=== PATIENT | male | born 1960 | race Caucasian/White ===

== ENCOUNTER → 2023-12-03 15:50 | Outpatient (REF) | payer OTHER, SELFPAY | LOC: RCS 15:50 | PROVIDERS: ATTENDING PHYSICIAN Physician Assistant Medical | DX: I35.0 Nonrheumatic aortic (valve) stenosis (principal) | CPT/HCPCS: 93306 ==

== ENCOUNTER 2024-02-18 06:45 | Day surgery (SDC) | payer OTHER, SELFPAY ==
[2024-02-18] VITALS (19 sets, daily range): BP systolic 105–180; BP diastolic 66–89; BMI 25.4
[2024-02-18 07:08] LABS: Hematocrit 44.7 % (39.0-52.0); Hemoglobin 15.9 g/dL (13.0-18.0); Mean Corp Hgb Conc. 35.6 g/dL (33.0-37.0); Mean Corpuscular Hgb 31.2 pg (27.0-31.0); Mean Corpuscular Volume 87.6 fL (80.0-94.0); Mean Platelet Volume 10.6 fL (7.4-10.4); Platelet Count 235 10^3/uL (130-400); Red Cell Dist. Width 12.8 % (11.5-14.5); White Blood Cell Count 7.3 10^3/uL (4.8-10.8)
[2024-02-18] MEDS: LOW STRENGTH ASPIRIN 81 MG PO (07:27)
[2024-02-18 08:04] LABS: ALT (SGPT) 24 U/L (0-50); AST (SGOT) 25 U/L (17-59); Albumin 4.8 g/dl (3.5-5.0); Alkaline Phosphatase 75 U/L (38-126); Blood Urea Nitrogen 19 mg/dl (9-20); Calcium 9.6 mg/dl (8.4-10.2); Carbon Dioxide 24 mmol/L (22-30); Chloride 104 mmol/L (98-107); Estimated Creatinine Clearance 96 ml/min; Glucose 123 mg/dl (70-99); Potassium 4.2 mmol/L (3.5-5.1); Sodium 142 mmol/L (135-145); Total Bilirubin 1.4 mg/dl (0.2-1.3); Total Protein 7.2 g/dl (6.3-8.2); eGFR > 60.00
--- NOTE | 2024-02-18 08:17 | ITS.CL.CATH ---
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
Cardiac Catheterization
Procedure Report:
LEFT AND RIGHT HEART CATHETERIZATION
Date of Procedure: February 18, 2024
Referring: Vashti Wilson MD, [facility], [facility]
PROCEDURES:
1. Left heart catheterization, coronary angiogram.
2. Right heart catheterization.
3. Ultrasound-guided access
INDICATION: Pre-consideration for AVR and MVR for severe bicuspid aortic stenosis and moderate to severe mitral stenosis
ACCESS:
1. Right radial artery, 6 Panamanian sheath, under ultrasound guidance
2. Right brachial vein, 6 Panamanian
HEMODYNAMICS : (mmHg)
RA (m) : 6
RV (s/d,m) : 32/5, 10
PA (s/d, m) : 32/15, 22
PCWP (m) : 16
PA saturation: 73.4% on room air
AO saturation: 94.6% on room air
RA saturation: 75% on room air
Cardiac Output : 5.38 L/min
Cardiac Index : 2.51 L/min/m-2
Systemic vascular resistance: 1205 dsc^(-5)
Pulmonary vascular resistance: 1.12 rico unit
AO (s/d) : 144/68
CORONARY FINDINGS
DOMINANCE: Right
LEFT MAIN: The left main artery is a large-caliber vessel which gives rise to the left circumflex artery and the left anterior descending artery. There is mild diffuse atherosclerotic plaque.
LEFT ANTERIOR DESCENDING: The left anterior descending artery is a large-caliber vessel which gives rise to 2 major diagonal branches as it courses through the anterior interventricular groove and wraps around the apex. There is mild diffuse
atherosclerotic plaque.
CIRCUMFLEX: The left circumflex artery is a medium caliber vessel which gives rise to 1 major branching obtuse marginal branch. There is mild diffuse atherosclerotic plaque.
RIGHT CORONARY ARTERY: The RCA is heavily calcified at the ostium with significant difficulty with selective engagement despite using multiple diagnostic catheters (5 Panamanian JR4 and 3 DRC). There is an eccentric calcified 70% ostial RCA stenosis
and a vessel that is otherwise severely tortuous in the proximal to midportion. Distal RCA has 2 serial 40% stenoses. RPDA appears to be a good bypass target.
SEDATION: 42 minutes of procedural sedation was utilized. An independent rn medical surgical was present to assist with and help manage the patient's level of consciousness and physiologic status.
RADIATION SUMMARY: Fluoro Time (min): 11.4, Dose (mGy): 449.28, DAP (Gy.cm2) : 36.07
Closure Device:
1. Vascular band over right radial artery, 10 cc of air.
2. Manual pressure was held over the right brachial venous access site with successful hemostasis.
CONCLUSIONS
1. Significant one-vessel coronary artery disease in the ostial RCA.
2. Otherwise no obstructive coronary artery disease.
3. Mildly elevated right and left-sided filling pressures with normal cardiac output and normal systemic vascular resistance.
RECOMMENDATIONS
1. CT surgery consult as an outpatient to discuss possible AVR/MVR and one-vessel coronary artery bypass grafting to RCA. There is an eccentric calcified 70% ostial RCA stenosis and a vessel that is otherwise severely tortuous in the proximal to
midportion. Distal RCA has 2 serial 40% stenoses. RPDA appears to be a good bypass target.
2. We will obtain a CT angio of the chest per TAVR protocol in the setting of known bicuspid aortic stenosis to assess aortopathy and need for aortic intervention.
3. Continued aggressive management of cardiovascular risk factors.
4. Wean radial band per protocol.
5. Eventual referral for outpatient cardiac rehab.
Vashti Wilson MD, FAC, [facility]
== END 2024-02-18 16:40 | disposition home or self-care (01) ==
LOC: CATH 06:45
PROVIDERS: ATTENDING PHYSICIAN Internal Medicine Cardiovascular Disease; FAMILY PHYSICIAN Physician Assistant Medical; OTHER PHYSICIAN Internal Medicine Interventional Cardiology
DX: I08.0 Rheumatic disorders of both mitral and aortic valves (principal); I25.10 Atherosclerotic heart disease of native coronary artery without angina pectoris; I10 Essential (primary) hypertension; E78.00 Pure hypercholesterolemia, unspecified; Z87.891 Personal history of nicotine dependence; Z79.82 Long term (current) use of aspirin
CPT/HCPCS: 93312; 93320; 93325; 99152; 99153; 80053; 85027; 93456; C1894; Q9967

== ENCOUNTER → 2024-02-26 12:31 | Outpatient (REF) | payer OTHER, SELFPAY | LOC: RAD 12:31 | PROVIDERS: ATTENDING PHYSICIAN Internal Medicine Interventional Cardiology; FAMILY PHYSICIAN Physician Assistant Medical | DX: I35.0 Nonrheumatic aortic (valve) stenosis (principal) | CPT/HCPCS: 75572; Q9967 ==

== ENCOUNTER 2024-03-12 05:08 | Inpatient (IN) | payer OTHER, SELFPAY ==
[2024-03-10 08:52] VITALS: BMI 24.5
[2024-03-10 09:21] LABS: % Basophils 0.5 % (0-2); % Eosinophils 1.7 % (0-6); % Immature Granulocytes 0.4 % (0-0.5); % Lymphocytes 25.7 % (20.5-51.1); % Monocytes 8.1 % (1.7-9.3); % Neutrophils 63.6 % (42.2-75.2); Absolute Eosinophils 0.1 10^3/uL (0-0.7); Absolute Lymphocytes 2.2 10^3/uL (1.2-3.4); Absolute Monocytes 0.7 10^3/uL (0.1-0.6); Absolute Neutrophils 5.3 10^3/uL (1.4-6.5); Hemoglobin 14.9 g/dL (13.0-18.0); Mean Corp Hgb Conc. 35.5 g/dL (33.0-37.0); Mean Corpuscular Volume 90.1 fL (80.0-94.0); Mean Platelet Volume 10.3 fL (7.4-10.4); Nucleated Red Blood Cells % 0 % (-); Platelet Count 263 10^3/uL (130-400); Red Blood Cell Count 4.66 10^6/uL (4.70-6.10); Red Cell Dist. Width 12.6 % (11.5-14.5); White Blood Cell Count 8.4 10^3/uL (4.8-10.8)
[2024-03-10 09:25] LABS: APTT 32.4 Sec (23.4-35.0); INR 1.05; PT 13.8 Sec (11.4-14.6)
[2024-03-10 09:53] LABS: ALT (SGPT) 27 U/L (0-50); AST (SGOT) 24 U/L (17-59); Albumin 4.6 g/dl (3.5-5.0); Alkaline Phosphatase 66 U/L (38-126); Blood Urea Nitrogen 15 mg/dl (9-20); Calcium 9.3 mg/dl (8.4-10.2); Carbon Dioxide 27 mmol/L (22-30); Chloride 101 mmol/L (98-107); Estimated Creatinine Clearance 96 ml/min; Glucose 109 mg/dl (70-99); Potassium 4.2 mmol/L (3.5-5.1); Sodium 142 mmol/L (135-145); Total Bilirubin 0.9 mg/dl (0.2-1.3); Total Protein 6.9 g/dl (6.3-8.2); eGFR > 60.00
--- NOTE | 2024-03-10 09:58 | CM ---
Met with Mr. Olvera and his sister in [facility]. He states prior to admission he resides with his spouse in a one story home with three steps to enter. He states prior to admission he was independent with ambulation and adls. He states he does not
have any DME in the home. He states he has a prescription plan. His spouse works outside the home. He states his spouse and other family member will be around to assist in his care if needed when he goes home. The discharge plan is to return home
with his spouse and a home visit by the Transitional Care Nurse when medically stable.
We reviewed pre-op and post-op routines. We reviewed the shower instructions. He has the soap, written instructions and the Cardiothoracic Surgery Educational Booklet. We also reviewed restrictions including sternal precautions and driving
restrictions. We also discussed a home visit by the Transitional Care Nurse. He is agreeable to a home visit. If he needs VNA post TCRN he has selected [facility]. The plan is for AVR/MVR and CABG on Friday03/12/24.
[2024-03-10 10:21] LABS: Direct Bilirubin 0.2 mg/dl (0.0-0.4); Glycohemoglobin (HgbA1c) 5.3 % (4.0-5.6)
[2024-03-10 11:18] LABS: Urine Albumin Negative (Neg - Trace); Urine Bilirubin Negative (Negative); Urine Character Clear (Clear); Urine Color Yellow; Urine Glucose Negative (Negative); Urine Ketone Negative (Negative); Urine Leukocyte Negative (Negative); Urine Nitrite Negative (Negative); Urine Occult Blood Negative (Negative); Urine Urobilinogen Negative (Neg - 1+)
[2024-03-12] VITALS (13 sets, daily range): BP systolic 97–155; BP diastolic 49–76; BMI 23.5
[2024-03-12] MEDS: MAGNESIUM OXIDE 500 MG PO (05:34)
[2024-03-12] MEDS: PROTONIX 40 MG PO (05:34)
[2024-03-12] MEDS: LOPRESSOR 25 MG PO (05:35)
[2024-03-12] MEDS: BACTROBAN 2% OINTMENT 1 APPLIC NASAL ×2 (05:35→20:03)
--- NOTE | 2024-03-12 05:54 | PTCARENOTE ---
pt admitted into 2266. pt admits to NPO PMN and 2 showers at home. labs sent, pt clipped, washed with CHG, full admission completed. awaiting CVOR
--- NOTE | 2024-03-12 05:55 | W.CVOR.SURPR ---
CVOR Surgeon Immed Pre Op
-
I have examined this patient prior to performance of the scheduled procedure.
The patient's condition is unchanged from the time of the dictated/written History and
Physical and the patient is able to undergo the scheduled procedure.
Sternotomy AVR + MVR + CABG x 1 + MAYCOL Clip
[2024-03-12 07:03] LABS: ACT+ - POC 96 Seconds (82-134)
[2024-03-12 07:33] LABS: Urine Albumin Trace (Neg - Trace); Urine Bilirubin 1+ (Negative); Urine Character Clear (Clear); Urine Color Yellow; Urine Glucose Negative (Negative); Urine Ketone 3+ (Negative); Urine Leukocyte Trace (Negative); Urine Nitrite Negative (Negative); Urine Occult Blood 2+ (Negative); Urine Specific Gravity 1.025 (<1.030); Urine Urobilinogen Negative (Neg - 1+)
[2024-03-12 08:24] LABS: ACT+ - POC 572 Seconds (82-134)
--- NOTE | 2024-03-12 08:29 | CM ---
Reviewed chart. Mr.. Olvera is in the operating room today. Prior to admission he resides with his spouse in a one story home with three steps to enter. Prior to admission he was independent with ambulation and adls. He does not have any DME in
the home. He has a prescription plan and and uses [facility]. His spouse works outside the home. His spouse and other family members will be around to assist in his care when he goes home if needed. Medical work-up in progress. The discharge
plan is to return home with his spouse and a home visit by the Transitional Care Nurse when medically stable.
[2024-03-12 08:47] LABS: B.E. - POC -1.2 mmol/L; Glucose - POC 112 mg/dl (70-99); HCO3 - POC 24 mmol/L (21-29); Hematocrit - POC 41 % PCV (42-52); Hemodilution- POC Yes; Hemoglobin Calculated - POC 13.8; Ionized Calcium - POC 1.17 mmol/L (1.12-1.27); PCO2 - POC 40 mmHg (35-45); PO2 - POC 409 mmHg (80-100); POC Comment PRE; Potassium - POC 3.7 mmol/L (3.6-5.0); Sodium - POC 141 mmol/L (135-145); pH - POC 7.39 (7.35-7.45)
[2024-03-12 09:00] LABS: ACT+ - POC 466 Seconds (82-134)
[2024-03-12 09:08] LABS: ACT+ - POC 472 Seconds (82-134)
[2024-03-12 09:15] LABS: B.E. - POC 1.7 mmol/L; Glucose - POC 102 mg/dl (70-99); HCO3 - POC 26 mmol/L (21-29); Hematocrit - POC 31 % PCV (42-52); Hemodilution- POC Yes; Hemoglobin Calculated - POC 10.5; Ionized Calcium - POC 1.01 mmol/L (1.12-1.27); O2 Saturation %Calculated-POC 99.9 % (92-96); PCO2 - POC 37 mmHg (35-45); PO2 - POC 326 mmHg (80-100); POC Comment CPB; Sodium - POC 138 mmol/L (135-145); pH - POC 7.45 (7.35-7.45)
[2024-03-12 09:18] LABS: Urine Amorphous Seen; Urine Squamous Cell 0-2 /LPF (Few)
[2024-03-12 09:19] LABS: Urine White Cell 0-2 /HPF (0-5)
[2024-03-12 09:26] LABS: ACT+ - POC 584 Seconds (82-134)
[2024-03-12 09:43] LABS: B.E. - POC 0.8 mmol/L; Glucose - POC 129 mg/dl (70-99); HCO3 - POC 25 mmol/L (21-29); Hematocrit - POC 34 % PCV (42-52); Hemodilution- POC Yes; Hemoglobin Calculated - POC 11.5; Ionized Calcium - POC 1.03 mmol/L (1.12-1.27); O2 Saturation %Calculated-POC 99.6 % (92-96); PCO2 - POC 37 mmHg (35-45); PO2 - POC 175 mmHg (80-100); POC Comment CPB; Potassium - POC 4.9 mmol/L (3.6-5.0); Sodium - POC 139 mmol/L (135-145); pH - POC 7.44 (7.35-7.45)
[2024-03-12 09:53] LABS: ACT+ - POC 557 Seconds (82-134)
[2024-03-12 10:20] LABS: B.E. - POC -0.4 mmol/L; Glucose - POC 142 mg/dl (70-99); HCO3 - POC 23 mmol/L (21-29); Hematocrit - POC 36 % PCV (42-52); Hemodilution- POC Yes; Hemoglobin Calculated - POC 12.4; Ionized Calcium - POC 1.04 mmol/L (1.12-1.27); O2 Saturation %Calculated-POC 99.8 % (92-96); PCO2 - POC 34 mmHg (35-45); PO2 - POC 217 mmHg (80-100); POC Comment CPB; Potassium - POC 4.9 mmol/L (3.6-5.0); Sodium - POC 139 mmol/L (135-145); pH - POC 7.45 (7.35-7.45)
[2024-03-12 10:30] LABS: ACT+ - POC 466 Seconds (82-134)
[2024-03-12 10:45] LABS: B.E. - POC -1.9 mmol/L; Glucose - POC 146 mg/dl (70-99); HCO3 - POC 24 mmol/L (21-29); Hematocrit - POC 37 % PCV (42-52); Hemodilution- POC Yes; Hemoglobin Calculated - POC 12.5; Ionized Calcium - POC 1.08 mmol/L (1.12-1.27); O2 Saturation %Calculated-POC 99.7 % (92-96); PCO2 - POC 44 mmHg (35-45); PO2 - POC 220 mmHg (80-100); POC Comment CPB; Potassium - POC 4.7 mmol/L (3.6-5.0); Sodium - POC 139 mmol/L (135-145); pH - POC 7.34 (7.35-7.45)
[2024-03-12 10:57] LABS: ACT+ - POC 654 Seconds (82-134)
[2024-03-12 11:32] LABS: Glucose - POC 147 mg/dl (70-99); HCO3 - POC 26 mmol/L (21-29); Hematocrit - POC 36 % PCV (42-52); Hemodilution- POC Yes; Hemoglobin Calculated - POC 12.2; Ionized Calcium - POC 1.04 mmol/L (1.12-1.27); PCO2 - POC 48 mmHg (35-45); PO2 - POC 405 mmHg (80-100); POC Comment WARM; Potassium - POC 4.7 mmol/L (3.6-5.0); Sodium - POC 141 mmol/L (135-145); pH - POC 7.35 (7.35-7.45)
[2024-03-12 11:37] LABS: ACT+ - POC 120 Seconds (82-134)
[2024-03-12] MEDS: NEURONTIN PO ×2 (12:36→16:04)
[2024-03-12] MEDS: NOVOLOG FLEXPEN SC ×2 (12:36→16:04)
[2024-03-12] MEDS: TYLENOL PO ×2 (12:37→19:59)
--- NOTE | 2024-03-12 12:40 | CON.INTV ---
Consultation
Consultation Request
Date/Time Consultation Requested: 03/12/2024-1:30 PM
Date/Time Consultation Performed: 03/12/2024-1:30 PM
Requesting Provider: Dr. Olivares
Performing Provider: Dr. Rod
Reason for Consultation: Postoperative ventilator/critical care management
Medical History
-
Chief Complaint: CAD/aortic stenosis
History of Present Illness:
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
ventilator/critical care management 02/11/2024. Patient is sedated on a ventilator and review of systems was unobtainable. Operative records were reviewed. Postoperative vital signs, pressors and inotropes were reviewed.
Past Medical History
Past Medical History: None (Hypertension. Hyperlipidemia. CAD. Aortic stenosis. Mitral stenosis. Former drinker-quit 2006. Former [id number]-year, quit 2000. Hernia repair.)
Social History
Tobacco: Former Smoker ([id number] quit 2000)
Alcohol: Former (Quit 2007)
Drug: None
Personal:
Living: With Family
Occupational Exposures: No known asbestos exposure
Environmental Exposures: No known tuberculosis exposure
Family History
Family History: Other (Father-multiple sclerosis. Mother-glaucoma and hypertension. Brother-hypertension and CVA. Brother-throat cancer. Daughter-triple X syndrome.)
Allergies / Home Medications
Allergies
Allergy/AdvReac Type Severity Reaction Status Date / Time
Wyaoikp-[id number]-NyP Reductase Allergy Severe myalgias Verified 03/09/24 14:47
Inhibitor
Home Medications
�Medication �Instructions �Recorded �Confirmed �Last Taken �Type
aspirin 81 mg chewable tablet 81 mg DAILY Blood Clot 02/18/24 03/12/24 03/11/24 19:00 History
Prevention/Tx
evolocumab 140 mg/mL subcutaneous 140 mg SC Q14D High Cholesterol 02/18/24 03/12/24 03/04/24 19:00 History
pen injector (Jeffry Doyle)
ezetimibe 10 mg tablet 10 mg PO QPM High Cholesterol 02/18/24 03/12/24 03/11/24 19:00 History
magnesium 250 mg tablet 250 mg PO DAILY Electrolyte 02/18/24 03/12/24 03/09/24 09:00 History
Repletion
metoprolol succinate 25 mg 25 mg PO QPM Heart 02/18/24 03/12/24 03/11/24 19:00 History
tablet,extended release 24 hr Disease/Condition
multivitamin 1 tab PO DAILY Supplement 02/18/24 03/12/24 03/09/24 19:00 History
amlodipine 10 mg tablet 10 mg PO QPM Blood Pressure 03/09/24 03/12/24 03/09/24 09:00 History
fluticasone propionate 50 1 spray intranasal BID PRN 03/09/24 03/09/24 Unknown History
mcg/actuation nasal CONGESTION
spray,suspension
potassium gluconate 595 mg (99 mg) 595 mg PO DAILY Electrolyte 03/09/24 03/12/24 03/09/24 19:00 History
tablet Repletion
Review of Systems
-
Unable to Obtain full review of systems at this time due to: Other (Per HPI)
Vitals / Labs / Diagnostic Testing
Vital Signs
Temp Pulse Resp Pulse Ox
98.3 F 95 20 96
03/12/24 06:23 03/12/24 06:23 03/12/24 06:23 03/12/24 06:23
Microbiology
03/10/24 08:49 Nose MRSA Screen - Final
No Methicillin Resistant Staphylococcus aureus isolated.
Diagnostic Testing:
Physical Exam
-
Exam:
Well-nourished and well-developed in no apparent distress
HEENT-atraumatic, normocephalic, oral tracheal intubation
Heart-regular rate and rhythm-no murmurs, rubs or gallops
Chest-clear to auscultation, no wheezes, crackles, median sternotomy bandage is not removed
Abdomen soft nondistended
Extremities-no cyanosis, clubbing, edema and good peripheral pulses
Integument-intact, no rashes, lesions or ecchymosis
Neurologically not alert, not oriented, not moving any of his extremities sedated on a ventilator
Assessment
-
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
ventilator/critical care management 02/11/2024.
CAD/aortic stenosis/mitral stenosis
Status post CABG x 1-SVG to RPDA/29 mm bioprosthetic AVR/31 mm bioprosthetic MVR-Dr. Olivares-03/12/2024
Conditions present prior to admission:
Hypertension.
Hyperlipidemia.
CAD.
Aortic stenosis.
Mitral stenosis.
Former drinker-quit 2006.
Former [id number]-year, quit 2000.
Hernia repair.
Plan
Ventilator settings reviewed
FiO2 will be weaned
Minute ventilation will be adjusted
Arterial blood gases will be monitored
Spontaneous breathing trial will be attempted with hopeful extubation after anesthesia/sedation wear off
Pulmonary artery catheter parameters will be followed
Pressors/antihypertensive/inotropes/diuretics will be provided as needed
Monitor chest tube output
Monitor hemoglobin
Monitor platelet count and coags
Transfuse blood product if needed
CT surgery following chest tubes
Monitor blood sugar
Insulin drip per protocol
Aspiration precautions
VAP prevention protocol
DVT prophylaxis
Early nutrition
Early mobilization
Critical care statement: A total of 50 minutes of critical care time was provided for this patient today. This includes management of ventilator, spontaneous breathing trial, arterial blood gases, pressors, of unstable vital signs, evaluation of the
patient at bedside, reviewing the patient's pertinent medical records including radiographs, microbiology, laboratory evaluations, and discussion with primary team and critical care nursing.
Diagnostic data:
Chest x-ray 11/01/2007-NAD
CT coronary angiogram 02/26/2024-no pulmonary nodules or airspace disease, pleural effusions
Echocardiogram 12/03/2023-EF 60-65%, severe mitral stenosis, severe aortic stenosis
Transesophageal echocardiogram 03/12/2024-EF 60%, moderate concentric LVH, stage I diastolic dysfunction, severe mitral stenosis, mild mitral regurgitation, severe aortic stenosis, mild aortic insufficiency, bicuspid aortic valve
Cardiac catheterization 02/18/2024-significant one-vessel CAD with ostial RCA lesion
Data Reviewed
-
EKG: Report reviewed by me
Radiology: Report reviewed by me
CT Scan: Report reviewed by me
Medical Tests (Nuc Med, Echo etc): Report reviewed by me
Labs: Labs reviewed by me
Old Records: Reviewed
Critical Care Time (in minutes): 50
--- NOTE | 2024-03-12 13:00 | PTCARENOTE ---
Patient received from CVOR at 1300, intubated and sedated. NSR on monitor rate 60's-70's. RIJ Quinlan laly @ approx 52/cordis in place, R a-line. All lines leveled and zeroed. Pt systolic BP goal <100 mmHg, Levo continued from OR. Palpable pulses B/L,
R<L, no edema noted. AV wires in place connected to temporary pacemaker DDD settings 50/16/10/0.4, no pacing spikes on the monitor; heart sounds distant and rub heard on auscultation. 8.0 ET tube 26 at the R lip, ventilator assisted respirations,
SIMV settings 14/550/5/5/60%, SpO2 100%. CTx4 draining sanguinous drainage, no air leak, tidaling, or crepitus noted'; lungs diminished at the bases. Hypoactive BS; Fowler present draining clear, yellow urine. Midline sternal incision dermabonded [employer]
CDI, some ecchymosis around the incision; RLE SVG site CDI Dermabond and michael wrap. PIV x1 in R forearm. Levo, insulin, Precedex infusing. See nursing documentation for further details.
--- NOTE | 2024-03-12 13:12 | W.PN.CT.SURG ---
CT Surgery Operative Note
-
CARDIAC SURGERY OPERATIVE REPORT
Preoperative Diagnosis: Severe aortic valve stenosis, bypassed morphology, moderately severe mitral valve stenosis and insufficiency, single-vessel coronary disease
Postoperative Diagnosis: Same
Procedure(s) Performed:
1. Standard aortic and bicaval cannulation
2. CABG x 1 [reverse saphenous vein graft from aorta to RPDA]
3. Surgical aortic valve replacement [29 mm bioprosthesis] requiring extensive debridement into the annulus
4. Surgical mitral valve replacement using a chordal sparing method [31 mm bioprosthesis] requiring extensive debridement of mitral annular calcification
5. Left atrial appendage exclusion [45 mm clip]
6. Placement of temporary atrial ventricular pacing wires
7. Transesophageal echocardiography
8. Endoscopic harvest of the right lower extremity for vein graft
Date of Surgery: 03/12/2024
Comorbidities:
1. Bicuspid aortic valve morphology, type II with severe stenosis
2. Moderately severe mitral valve stenosis with severe mitral annular calcification, mild degree of insufficiency
3. Hypertension
4. History of alcohol abuse
5. Former smoker, quit in 2000
6. Hyperlipidemia
7. Single-vessel coronary artery disease
8. Mild aortic ectasia
9. Moderately severe left ventricular hypertrophy
Attending Surgeon: Colton Olivares MD, MS
Assistants: Nina Chatman PA-C (present and necessary to field technical assistant, retraction, suction, exposure, suture management, and wound closure under my direction)
Anesthesiology: Gene Villalta MD and JOHNNY Ruiz
Scrub and Circulating RNs: Massiel Rosales, RN, Zaida Nunez, RN, Carolee Rivas, RIGO
Print Finisher: Alida Alves CCP
Anesthesia: GETA
EBL: per perfusion records
Products: 2 plts and 2 ffp
CPB Time: 178 minutes
Aortic Cross Clamp Time: 159 minutes
Indication(s) for Procedures: This is a 63-year-old male who has been developing progressive symptoms more noticeable by his family. He has severe aortic valve stenosis with a mean gradient of over 40 and a velocity of over 4 m/s. He also has
bicuspid aortic valve morphology and severe mitral annular calcification resulting in some stenosis and mild insufficiency. Due to his mixed valvular pathology and progression of symptoms, he was offered surgical intervention in the form of a
double valve replacement, coronary artery bypass grafting x 1 and management of his left atrial appendage. His STS was reviewed in the office and I quoted him a mortality risk of approximately 2 to 3%. He accepted those risks and so we proceed
with surgery. Due to the severe mitral annular calcification and aortic calcification extending down onto the aorto mitral curtain, his valve was not salvageable.
Aortic Valve Description: Very heavily calcified with infiltration into the annulus requiring a CUSA debridement device in order to remove the majority of the calcification in order to pass sutures. The calcification extended down to the LVOT and
onto the aorto mitral curtain which was debrided. The left and right coronary were almost 180 degrees across 1 another.
Mitral Valve Description: Heavily calcified towards the base and insertion point of the leaflets. There is dense mitral annular calcification mostly towards the posterior annulus that was ablated using an ultrasonic device. The CUSA device was used
to debride.
Findings: His left ventricular ejection fraction preoperatively was approximately 65%. He also had a significant degree of left ventricular hypertrophy. There was dense calcification of the aortic valve and mitral annular calcification as well.
This required extensive debridement using ultrasonic debridement device. A single-vessel coronary bypass graft performed to the [facility] had excellent flow and test dosing of antegrade yielding approximately 50 cc a minute at a pressure of 60 mmHg.
The left atrial appendage was free of any thrombus or debris preoperatively and found to be totally occlusive postoperatively with only a small residual stump that was less than 8 mm. The aortic valve was replaced using a total of 14 combination of
pledgeted nonpledgeted 2 Ethibond sutures in inverted fashion from LVOT through annulus through sewing cuff securing a [address] with core knots. The mitral valve was replaced and a chordal sparing method relocating the anterior
leaflet cords to the posterior annulus. I had to debride a significant degree of mitral annular calcification in order to pass the sutures through the annulus. This was done in an inverted fashion from LV through annulus through sewing cuff of the
valve securing a total of 14 pledgeted 2 Ethibond sutures with core knots. This was replaced with a 31 mm bioprosthesis. After coming off of cardiopulmonary bypass there was no paravalvular leak that was seen on either the mitral or aortic valve
prostheses both bioprosthesis had normal excursion of the leaflets the mean gradient across the mitral valve was essentially 0 to 1 mmHg and aortic valve was 3 mmHg. There was a slight LVOT gradient of approximately 10 mmHg and again severe left
ventricular hypertrophy. His cardiac index was approximately 1.7-1.8. Given that he was diffusely wheezy, I gave him 2 units of platelets and plan to give him FFP in the CVICU. He had no regional wall motion abnormalities following surgery.
Specimen(s): Aortic valve leaflets and Anterior leaflet of the mitral valve.
Prosthesis:
1. 29mm PINK RESILIA INSPIRIS AVR, SN [id number]
2. 31mm PINK MITRIS RESILIA MVR, SN [id number]
3. 45mm MAYCOL Clip, SN [id number]
Description of Procedure: The patient was taken to the operating room. Their identity and procedure to be performed were verified and they were positioned supine on the operating table. Induction via general anesthesia with endotracheal intubation
was performed and central venous access and arterial monitoring were inserted. A preoperative transesophageal echocardiogram was performed to assess cardiac function and valvular function. The patient was then prepped and draped from chin to feet in
a sterile fashion. A preoperative time-out was performed with all members of the team present. A midline chest incision was performed along with median sternotomy. Simultaneous endoscopic harvesting of the right lower extremity was performed to
obtain vein conduit. The innominate vein was isolated. Full heparinization was given (a total of 70,000 units). We created a pericardial well. The aortic cannulation site was chosen where it was soft, pliable, and free of calcium. Cannulation was
performed with an arterial cannula in the ascending aorta, angled metal tip cannular in the superior vena cava and straight bendable cannula in the inferior vena cava. The arterial cannula line had an appropriate bounce and correlating pressures.
Next, a root vent/antegrade cannula was inserted into the ascending aorta. The ACT was confirmed to be over 400 and retrograde autologous priming was performed before commencing cardiopulmonary bypass. The pulmonary artery was away from
the aorta to facilitate a clamp site. Sondergaard�s groove was developed after creating the oblique sinus. The aortic cross-clamp was placed after decreasing the flow on the bypass and mean arterial pressure. A total of 1.2L initial dose of
antegrade Del-Nido cardioplegia solution was given and planned for re-dosing every 90 minutes as necessary. There was rapid electro-mechanical arrest of the heart at 600 cc of cardioplegia. Due to the sluggish response to cardioplegia, an
additional dose was given. The left ventricle was observed for distention on echocardiogram and manual palpation. Cold slush was placed into a lap on the RV and we systemically cooled to 34 degrees centigrade. Once the heart was fully arrested, it
was medialized and the left atrial appendage was visualized and sized to a 45 mm clip that was applied flush to the base. The heart was then positioned in order to expose the RPDA. The vein graft was beveled accordingly and end-to-side anastomosis
was created after recording a small coronary arteriotomy. This was performed with 7-0 Prolene and tied down. Test dose of antegrade was given down the graft had a mean pressure of 80 mmHg and yielding a 50 cc a minute of flow. There was good
hemostasis.
Carbon dioxide was used to flood the field. We manually identified the location of the right coronary take off. An aortotomy was made approximately 2cm above the sinotubular junction. The location of both left and right coronary vessels were
visualized in the root.The leaflets were excised and sent for pathological assessment. The annulus was debrided of any calcium being mindful of the annulus and membranous septum. There was dense annular calcification infiltration down towards the
aorto mitral curtain. This required ultrasonic debridement being mindful not to go through the annulus entirely the root and left ventricular outflow tract were thoroughly irrigated to remove any debris.
Next, the mitral valve was accessed via the interatrial groove followed by valve analysis. The mitral valve was replaced as described above. I relocated the anterior cords the posterior annulus. In order to facilitate both placement of the valve
and passing of the annular sutures, I had to debride majority of the MAC of the posterior annulus using the ultrasonic device the left ventricular vent was repositioned across the mitral valve into the left ventricular and the left atrium was closed
with a 3-0 prolene. I then irrigated the field in order to remove any debris or calcium bits.
I turned my attention back toward the root. A total of 11 non-pledgeted 3 pledgeted 2-0 ethibond inverted annular sutures were placed [id number] circumferentially. These were brought through the sewing cuff of the prosthetic valve which as then
parachuted into place. The left and right coronary ostia were visualized and were unobstructed by the valve. A Cor-Knot device was used to secure the annular sutures. The valve was inspected and was well seated. The aortotomy was approximated with
4-0 prolene in two layers.
De-airing maneuvers were performed and temporary atrial and ventricular pacing wires were placed at the SVC/RA junction and base of the right ventricle, respectively. The patient was placed in a Trendelenburg position and flows on bypass were
lowered. The aortic cross clamp was removed and flows were slowly brought back up. The left atrial suture line was hemostatic. Transesophageal echocardiography revealed no evidence of regional wall motion abnormality and ventricular function was
normal although hypertrophic. The AV prosthesis was well seated without PVL or AI. The mitral valve prosthesis was also well-seated with no paravalvular leak. Once de-airing was satisfactory the left ventricular and root vents were removed. After
verifying acceptable parameters, we initiated weaning from cardiopulmonary bypass. Once we were off cardiopulmonary bypass, the venous cannulas was clamped and removed sequentially. A test dose of protamine was administered and the patient was
monitored for any adverse reaction before resuming protamine. Once half of the protamine dose was delivered, pump suckers were turned off and the systolic blood pressure was lowered for aortic decannulation. The aortic cannula was removed and purse
strings were tied down. All cannulation sites were oversewn with a 4-0 prolene. Additional reinforcement pledgeted sutures were placed at the antegrade site as well as on 2 spots on the aortic suture line. Hemostatic agents were then packed around
the suture line and antegrade site with improved hemostasis. The left atrial suture line was inspected and hemostasis was confirmed. Mediastinal hemostasis was obtained. Two #24 Wale drains were placed within the pericardium. Bilateral pleural
spaces were also opened and entered and 2 #19 Wale drains were placed. The pericardium was approximated over the aorta with Vicryl sutures. The sternum was approximated with 4 #7 single and 3 #8 double stainless steel wires. Fascia was
approximated with #1 vicryl suture. The subcutaneous, dermis and epidermis were closed in layers in a running fashion. The skin wound was cleansed and dressed.
All instrument, sponge, and needle counts were confirmed to be correct x 2 at the end of the operation. The patient was transferred to the cardiac intensive care unit in critical but stable condition.
I, Dr. Colton Olivares, was present, scrubbed for, and performed all critical elements of this procedure.
Colton Olivares MD, MS
Cardiothoracic Surgeon
[facility]
This dictation was created using the [employer] dictation system. Please excuse any grammatical, typographical, or 'sound alike' errors
[2024-03-12 13:14] LABS: Glucose - Point of Care 135 mg/dl (70-99)
[2024-03-12 13:25] LABS: B.E. -0.3 mmol/L; Ionized Calcium 1.11 mMOL/L (1.15-1.33); PCO2 37 mmHg (35-48); PO2 213 mmHg (83-108); Potassium 3.7 mMOL/L (3.5-5.1); Sodium 138 mMOL/L (136-145); pH 7.42 (7.35-7.45)
[2024-03-12 13:27] LABS: Mixed Venous O2 Saturation 59.8 %
[2024-03-12 13:31] LABS: INR 1.64; PT 19.2 Sec (11.4-14.6)
[2024-03-12 13:32] LABS: APTT 32.2 Sec (23.4-35.0)
[2024-03-12] MEDS: ANCEF 10 IV ×2 (13:38)
[2024-03-12] MEDS: NSS 500 IV (13:38)
--- NOTE | 2024-03-12 13:45 | W.PN.CARDCBS ---
Addendum entered and electronically signed by Paul Roland DO 03/12/24 17:48:
I saw and examined the patient.
The Dairy Store Manager's note was reviewed and I agree with the note.
Comment:
Patient is a 63M with a history of CAD, ,MS, HTN, HLD, h/p etoh use, h/o tobacco use who underwent bioprosthetic AVR, MVR, CABGx1 (SVG-RPDA), MAYCOL clip on 03/12/2024
Patient seen and examined, remains intubated on minimal sedation. Patient following commands on CPAP trial.
On insulin, levo at 4, precedex infusions at time of eval; nursing adjusting gtt.
CTs in place, epi-wires in place; EKG SR, long QT, 1st degree AVB
Received FFP, platelets; Hbg 9.7
Continue supportive care; transfusion per CTSx if deemed necessary
Monitor on telemetry
Replete electrolytes goal K>4, Mg>2
ASA/Plavix
No statin 2/2 intolerance, continue PCSK9 when able
Further recommendations to follow clinical course
Original Note:
Today's Communication / Plan
-
Continue post op care
Follow QT on EKG, repeat in AM
Impression / Plan
-
PCP: Carmen Mendez
Wildlife Ecology Professor: Dr. Wilson
Impression:
s/p bioprosthetic AVR, bioprosthetic MVR, CABG x1, and MAYCOL clip 03/12/2024
Bicuspid aortic valve w/ severe
s/p 29 mm bioprosthetic AVR 03/12/2024
Moderate-severe mitral stenosis
s/p 31 mm bioprosthetic MVR 03/12/2024
CAD
CABG x 1 (reverse SVG from aorta to RPDA) 03/12/2024
Hypertension
Hyperlipidemia
h/o statin intolerance
h/o ETOH abuse
former tobacco abuse
HANNAH 02/18/2024: EF 65-70%, calcified mitral valve leaflets w/ restricted motion, mod mitral stenosis, mild MR, heavily calcified bicuspid aortic valve w/ fusion of RCC and LCC, severe with mild to mod AI, dilated ascending aorta at 4.5cm
HANNAH 03/12/2024: (post-op) EF 60%, well seated AVR and MVR, no paravalvular leaks, MAYCOL appears clipped with a small residual lumen, no color doppler seen distal to the clip.
Plan:
-s/p AVR, MVR, CABG x1, MAYCOL clip w/ Dr. Olivares 03/12/2024.
-Seen post-op. Remains intubated, sedated.
-On precedex, insulin gtt, and levo @4. BPs have been labile by RN report, however stable currently.
-2 units PLT and 1 albumin given intra-op. 1 unit FFP given post op, with another planned. Hgb 9.7 post op. Continue to follow.
-CI 1.34
-Post op EKG reviwed. SR with 1st degree AV block, QTc prolonged. Continue to follow.
-K 3.7, mag 3.1
-Aspirin and plavix.
-h/o statin intolerance, consider PCSK9 inhibitor as OP.
Progress Note - Wildlife Ecology Professor
Subjective
Date of Service: March 12, 2024
Intubated, sedated
Objective
Labs:
Labs
Hgb 14.9 g/dL (13.0-18.0) 03/10/24 08:49
Hct 42.0 % (39.0-52.0) 03/10/24 08:49
Plt Count 263 10^3/uL (130-400) 03/10/24 08:49
PT 19.2 Sec (11.4-14.6) H 03/12/24 13:07
INR 1.64 03/12/24 13:07
APTT 32.2 Sec (23.4-35.0) 03/12/24 13:07
Sodium 142 mmol/L (135-145) 03/10/24 08:49
Potassium 4.2 mmol/L (3.5-5.1) 03/10/24 08:49
BUN 15 mg/dl (9-20) 03/10/24 08:49
Creatinine 0.9 mg/dL (0.7-1.3) 03/10/24 08:49
Glucose 109 mg/dl (70-99) H 03/10/24 08:49
Vital Signs and I&O:
Vital Signs
Temp Pulse Resp BP Pulse Ox
97.1 F 69 14 155/76 100
03/12/24 13:00 03/12/24 13:40 03/12/24 13:40 03/12/24 05:05 03/12/24 13:40
Vital Signs
Temp Pulse Resp BP Pulse Ox
97.1 F 69 14 155/76 100
03/12/24 13:00 03/12/24 13:40 03/12/24 13:40 03/12/24 05:05 03/12/24 13:40
Intake & Output
03/10/24 03/11/24 03/12/24 03/13/24
06:59 06:59 06:59 06:59
Intake Total 68.4 / 68.4
Output Total 130 / 130
Balance -61.6 / -61.6
Physical Exam
Physical Exam
GEN: Intubated, sedated
HEENT: mmm
LUNGS: CTA, no wheezes/rales
CV: Reg, S1/S2, no murmur
EXT: No clubbing, cyanosis, or edema
SKIN: Warm, dry, no rash
[2024-03-12 13:46] LABS: Hematocrit 26.5 % (39.0-52.0); Hemoglobin 9.7 g/dL (13.0-18.0); Platelet Count 187 10^3/uL (130-400)
[2024-03-12 13:48] LABS: Blood Urea Nitrogen 22 mg/dl (9-20); Estimated Creatinine Clearance 108 ml/min; Glucose 122 mg/dl (70-99); Magnesium 3.1 mg/dl (1.6-2.3)
[2024-03-12 14:04] LABS: Glucose - Point of Care 131 mg/dl (70-99)
[2024-03-12 14:27] LABS: Hepatitis B Surface Antigen Negative (Negative)
[2024-03-12] MEDS: DILAUDID 0.5 MG IV ×2 (14:38→18:17)
--- NOTE | 2024-03-12 14:40 | W.PN.UPDATE ---
Update Note
Progress Note Update
IV fluids: 1500
U.O.:� 300
UF:� 3500
Blood:� 2 plts
Wires:� A+V
Inotropes:� None
Pressors:� Levophed
Sedatives:� Precedex
�
NEURO: sedated on precedex, pupils +4mm B/L
RESP: #8OT @25cm>14/550/60/5 Lungs clear B/L. 2 mediastinal (35cc on arrival) and R/L pleural (25cc on arrival) chest tubes to -20cm suction. Sanguineous drainage
CV: RRR +S1, S2, no S3, no�rub, no murmur. Dermabond to median sternotomy. RIJ w/Summers locked @ 51cm. PA 28/18; CVP 11;
ABD: round, soft, no BS
EXT: no edema, +2/4 DP pulses B/L, no femoral bruit, RLE LEONARDO wrap intact; Left radial A-line intact
: Fowler with clear yellow urine
�
A/P: POD #0 s/p CABG x 1 [reverse saphenous vein graft from aorta to RPDA], Surgical aortic valve replacement [29 mm bioprosthesis] requiring extensive debridement into the annulus, Surgical mitral valve replacement using a chordal sparing method
[31 mm bioprosthesis] requiring extensive debridement of mitral annular calcification
HANNAH: EF�65%.
- wean and extubate
- Monitor CT and urine output
- Follow up labs and CXR
- Wean levophed for maps >65
- Will start ASA tonight
- EKG pending and will send to cards
- Cards consulted
- will need instruction regarding antibiotic prophylaxis for dental and invasive procedures
�
# acute surgical blood loss anemia-expected
- trend CBC
�- s/p 2plts and 2FFP
�
# Hyperlipidemia
- resume�zetia when able
[2024-03-12] MEDS: LR 1000 IV (15:00)
[2024-03-12 15:06] LABS: Glucose - Point of Care 116 mg/dl (70-99)
[2024-03-12] MEDS: CALCIUM GLUCONATE 100 IV (15:09)
--- NOTE | 2024-03-12 15:35 | PTCARENOTE ---
Ventilator mode switch to CPAP for a breathing trial. Patient awake following commands at this time.
[2024-03-12] MEDS: PACERONE PO (16:04)
[2024-03-12 16:19] LABS: Glucose - Point of Care 108 mg/dl (70-99)
[2024-03-12] MEDS: KCL 50 IV ×3 (16:21→22:37)
[2024-03-12 16:30] LABS: B.E. 0.5 mmol/L; Hematocrit 23.7 % (39.0-52.0); Hemoglobin 8.5 g/dL (13.0-18.0); Ionized Calcium 1.23 mMOL/L (1.15-1.33); O2 Saturation % 99.9 % (94-98); PCO2 33 mmHg (35-48); PO2 149 mmHg (83-108); Platelet Count 184 10^3/uL (130-400); pH 7.47 (7.35-7.45)
--- NOTE | 2024-03-12 16:40 | PTCARENOTE ---
Patient extubated to 6LNC without issues. AOx3, IS teaching reinforced. C/o 11/02 in sternum. Assessment of needs ongoing
--- NOTE | 2024-03-12 16:51 | RESPNOTE ---
Patient extubated and placed on a 6L nasal cannula following cpap trial and abg. IS instruction completed.
[2024-03-12 17:00] LABS: Glucose - Point of Care 107 mg/dl (70-99)
[2024-03-12 17:03] LABS: HIV Combo Negative (Negative)
[2024-03-12 17:13] LABS: Hepatitis B Surface Antibody Negative; Hepatitis C Antibody Negative (Negative)
[2024-03-12] MEDS: LOW STRENGTH ASPIRIN 81 MG PO (17:18)
[2024-03-12] MEDS: OFIRMEV 100 IV (17:18)
[2024-03-12] MEDS: CARDENE 200 IV ×2 (18:58→22:25)
[2024-03-12 18:59] LABS: Glucose - Point of Care 95 mg/dl (70-99)
--- NOTE | 2024-03-12 19:30 | PTCARENOTE ---
Care of patient continued. Tolerating PO medications. Patient hypertensive, Cardene added, nitro titrated to keep systolic <110. See worklist. Assessment of needs ongoing.
[2024-03-12] MEDS: SENOKOT-S 1 TABLET PO (20:02)
[2024-03-12] MEDS: ANCEF 5 IV (20:02)
[2024-03-12 21:00] LABS: Glucose - Point of Care 107 mg/dl (70-99)
[2024-03-12] MEDS: PACERONE 200 MG PO (21:10)
[2024-03-12] MEDS: NEURONTIN 100 MG PO (21:10)
[2024-03-12] MEDS: FLEXERIL 5 MG PO (21:13)
[2024-03-12] MEDS: ROXICODONE 5 MG PO (22:12)
[2024-03-12] MEDS: CORDARONE 103 MG IV (22:24)
[2024-03-12 22:27] LABS: B.E. -2.6 mmol/L; HCO3 21.6 mmol/L (21-28); Ionized Calcium 1.18 mMOL/L (1.15-1.33); PCO2 34 mmHg (35-48); PO2 135 mmHg (83-108); Potassium 3.9 mMOL/L (3.5-5.1); pH 7.41 (7.35-7.45)
[2024-03-12 22:38] LABS: Magnesium 2.5 mg/dl (1.6-2.3)
[2024-03-12] MEDS: CORDARONE 518 MG IV (22:44)
[2024-03-12 22:56] LABS: Glucose - Point of Care 141 mg/dl (70-99)
--- NOTE | 2024-03-12 23:30 | PTCARENOTE ---
Patient reassessed. VSS. At 2200 approx patient had 10 beat run of Vtach. This RN present in room during run patient was completely asymptomatic and had no complaints following. CT PA notified. Received orders to check labs. Administer amio bolus
followed by initiation of Amio gtt. K repleted with lab results. Patient remains in SR on the monitor with occasional PVC HR in the 60s. Patient's goal SBP<110. Patient started on cardene as a result as well as nitro gtt. Currently maintaining goal
SBP on nitro@25 and cardene@10. CT PA aware.
[2024-03-13] VITALS (54 sets, daily range): BP systolic 99–150; BP diastolic 46–79; BMI 23.6
[2024-03-13] MEDS: DILAUDID 0.25 MG IV (00:08)
[2024-03-13 01:09] LABS: Glucose - Point of Care 131 mg/dl (70-99)
[2024-03-13] MEDS: CARDENE 200 IV ×3 (01:57→08:48)
[2024-03-13] MEDS: ROXICODONE 5 MG PO (02:15)
[2024-03-13 03:11] LABS: Glucose - Point of Care 122 mg/dl (70-99)
[2024-03-13] MEDS: DILAUDID 0.5 MG IV ×2 (03:12→14:40)
[2024-03-13 03:49] LABS: Mixed Venous O2 Saturation 55.8 %
[2024-03-13 03:58] LABS: Hematocrit 22.2 % (39.0-52.0); Hemoglobin 7.9 g/dL (13.0-18.0); Mean Corp Hgb Conc. 35.6 g/dL (33.0-37.0); Mean Corpuscular Hgb 31.7 pg (27.0-31.0); Mean Corpuscular Volume 89.2 fL (80.0-94.0); Mean Platelet Volume 11.1 fL (7.4-10.4); Platelet Count 176 10^3/uL (130-400); Red Blood Cell Count 2.49 10^6/uL (4.70-6.10); Red Cell Dist. Width 12.7 % (11.5-14.5); White Blood Cell Count 14.8 10^3/uL (4.8-10.8)
[2024-03-13] MEDS: ANCEF 5 IV ×2 (04:00→12:04)
[2024-03-13 04:11] LABS: INR 1.39; PT 16.9 Sec (11.4-14.6)
[2024-03-13 04:24] LABS: Blood Urea Nitrogen 25 mg/dl (9-20); Calcium 8.1 mg/dl (8.4-10.2); Carbon Dioxide 22 mmol/L (22-30); Chloride 107 mmol/L (98-107); Estimated Creatinine Clearance 96 ml/min; Glucose 123 mg/dl (70-99); Magnesium 2.5 mg/dl (1.6-2.3); Potassium 4.1 mmol/L (3.5-5.1); Sodium 141 mmol/L (135-145); eGFR > 60.00
--- NOTE | 2024-03-13 05:00 | PTCARENOTE ---
Patient reassessed. Patient BP managed with cardene and nitro gtt with goal SBP<110. Amio gtt tapered to 0.5. Patient with frequent pain exacerbations without much relief from available prn medications. Unable to sleep for majority of night. CT PA
notified. AM labs obtained. No orders to deline at this time. Fowler will be maintained. Will attempt to get patient oob if able to tolerate. Remains SR on the monitor.
[2024-03-13 05:13] LABS: Glucose - Point of Care 122 mg/dl (70-99)
--- NOTE | 2024-03-13 05:20 | W.PN.CT ---
Addendum entered and electronically signed by Tahir Hook MD 03/13/24 08:56:
I saw and examined the patient.
The PA's note was reviewed and I agree with the note.
Comment:
POD#1 s/p AVR/MVR/GSV to PDA/ELAA
No major overnight events. On NTG & cardene for BP control w/ SBP goals < 130
[address]ain CTs today
Transfuse 1U PRBC for Hgb 7.9
D/C SGC, maintain A-line
OOB/IS/ambulate
Original Note:
Today's Communication / Plan
-
-pod#1
-10 beat NSVT, asymptomatic (K 3.9, Mg 2.5, iCa 1.18) - tx with Amio bolus and drip and 20 KCL
-CI 2.20, CO 4.60, mVO2 55.8. Drips: LR 100 cc/hr, Cardene 10, Nitro 45, Amio 0.5
-CT output: 2 meds 85/215, 2 pleur 55/150 in 12/24 hrs
-Cardene and Nitro to keep SBP <110 overnight. Ok to liberate SBP < [address] Olivares
-follow ECG for long Qt
-Hg 7.9/hct 22.2 today- asymptomatic, not tachy or hypotensive
-maintain pw (VVI 50), Cordis, a-line
-current meds (ASA, Plavix, Lopressor, Amio, Protonix). Statin intolerance - on PCSK9 injection (Repatha) at home
-encourage IS, OOB
Assessment / Plan
-
- Severe aortic valve stenosis, bypassed morphology, moderately severe mitral valve stenosis and insufficiency, single-vessel coronary disease- s/p CABG x 1 [reverse saphenous vein graft from aorta to RPDA]; Surgical aortic valve replacement [29 mm
bioprosthesis RESILIA INSPIRIS] requiring extensive debridement into the annulus; Surgical mitral valve replacement using a chordal sparing method [31 mm bioprosthesis MITRIS RESILIA] requiring extensive debridement of mitral annular calcification;
Left atrial appendage exclusion [45 mm clip] by Dr. Olivares on 03/12/24, pod #1
- Intraop HANNAH: LVEF 65% preop with significant LVH, no regional wma following surgery. After coming off of cardiopulmonary bypass, there was no paravalvular leak that was seen on either the mitral or aortic valve prostheses. Both bioprosthesis had
normal excursion of the leaflets, the mean gradient across the mitral valve was essentially 0 to 1 mmHg and aortic valve was 3 mmHg. There was a slight LVOT gradient of approximately 10 mmHg and again severe left ventricular hypertrophy. The left
atrial appendage was free of any thrombus or debris preop and found to be totally occlusive postop with only a small residual stump that was less than 8 mm.
- Bicuspid aortic valve morphology, type II with severe stenosis
- Moderately severe mitral valve stenosis with severe mitral annular calcification, mild degree of insufficiency
- Hypertension
- History of alcohol abuse
- Former smoker, quit in 2000
- Hyperlipidemia- No statin d/t intolerance, on PCSK9 (Repatha) at home
- Single-vessel coronary artery disease
- Mild aortic ectasia
- Moderately severe left ventricular hypertrophy
- Urinary urgency
- Acute postop blood loss anemia - stable without transfusion
- Acute postop coagulopathy - s/p 2 unit platelets and 2 FFPs
- Acute postop atelectasis
- Acute postop hypovolemia with subsequent hypervolemia
- Acute postop 10 beat NSVT - tx with Amio bolus and drip
Discussed patient care with: Nursing and Care Team
Subjective
-
Date of Service: March 12, 2024
Objective Data
-
Lab Results
03/12/24 16:18
03/12/24 13:07
PT 19.2 Sec (11.4-14.6) H 03/12/24 13:07
INR 1.64 03/12/24 13:07
APTT 32.2 Sec (23.4-35.0) 03/12/24 13:07
Vital Signs
Vital Signs
Temp Pulse Resp BP Pulse Ox
98.8 F 66 22 110/65 98
03/12/24 22:00 03/12/24 22:00 03/12/24 22:00 03/12/24 22:00 03/12/24 22:00
CT Intake/Output/Weight
03/12/24 03/12/24 03/13/24
06:59 18:59 06:59
Intake Total 1570.85 / 2395.75 824.9 / 2395.75
Output Total 670 / 885 215 / 885
Balance 900.85 / 1510.75 609.9 / 1510.75
SaO2: 98
Physical Exam
-
General: Awake and AOx3
Cardiovascular: Regular rate & rhythm, No Murmurs and Rub
Respiratory: Decreased Breath Sounds
Sternum: Stable
Incision: Clean, Dry and Intact
Extremities: No Edema (2+ PTs b/l)
Data Reviewed
-
Lab Results: Results Reviewed
Medications: Active Meds Reviewed
Chest X-Ray: Report Reviewed and Image Reviewed
ECG: Report Reviewed and Image Reviewed
[2024-03-13] MEDS: TYLENOL 1000 MG PO ×3 (05:43→22:13)
[2024-03-13] MEDS: TORADOL 15 MG IV ×2 (06:11→19:26)
--- NOTE | 2024-03-13 06:22 | PTCARENOTE ---
Addendum entered by Isak Dominguez RN 03/13/24 06:27:
Goal SBP changed to <130 will begin to taper nitro and cardene gtts as tolerated.
Original Note:
AM hygiene care provided. Attempted to assist patient oob. Patient c/o feeling lightheaded and dizzy while oob. Somewhat unsteady on feet. Patient able to tolerate standing scale at this time. Assisted patient back to bed without incident.
[2024-03-13 07:27] LABS: Glucose - Point of Care 117 mg/dl (70-99)
--- NOTE | 2024-03-13 07:31 | W.PN.INTV ---
Today's Communication / Plan
Recommendations
Blood pressure control
Wean oxygen
Tolerated extubation
Transfusion today
Monitor chest tube output
deline
Likely transferred to telemetry-call pulmonary if respiratory issues arise
Assessment
-
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
ventilator/critical care management 02/11/2024.
CAD/aortic stenosis/mitral stenosis
Status post CABG x 1-SVG to RPDA/29 mm bioprosthetic AVR/31 mm bioprosthetic MVR-Dr. Olivares-03/12/2024
Conditions present prior to admission:
Hypertension.
Hyperlipidemia.
CAD.
Aortic stenosis.
Mitral stenosis.
Former drinker-quit 2006.
Former [id number]-year, quit 2000.
Hernia repair.
Plan
Tolerated extubation
Wean FiO2
Encourage incentive spirometry
Increase activity
Aspiration precautions
Pulmonary artery catheter and arterial line will be removed
Pressors have been weaned
Continue to monitor chest tube output
Follow hemoglobin-currently 7.9-will receive an additional unit
Continue to follow platelet count and coags
Transfuse blood product as needed
CT surgery following chest tubes as well
Blood pressure a bit high-currently weaning Cardene and adding oral meds
Follow blood sugar
Insulin supplementation continues as needed
Early nutrition
Early mobilization
DVT prophylaxis
Patient will be transferred to telemetry phase-call pulmonary if respiratory issues arise
Reviewed the patient's pertinent medical records including radiographs, microbiology, laboratory evaluations, and discussion with primary team, and critical care nursing.
Diagnostic data:
Chest x-ray 11/01/2007-NAD
CT coronary angiogram 02/26/2024-no pulmonary nodules or airspace disease, pleural effusions
Echocardiogram 12/03/2023-EF 60-65%, severe mitral stenosis, severe aortic stenosis
Transesophageal echocardiogram 03/12/2024-EF 60%, moderate concentric LVH, stage I diastolic dysfunction, severe mitral stenosis, mild mitral regurgitation, severe aortic stenosis, mild aortic insufficiency, bicuspid aortic valve
Cardiac catheterization 02/18/2024-significant one-vessel CAD with ostial RCA lesion
Subjective Dataa
Subjective Data
Date of Service:
Date of Service: March 13, 2024
Chief Complaint: Tie Bucker Follow Up, Pulmonary Follow Up and Vent Management Follow Up
Subjective:
Tolerated extubation, no complaints of shortness of breath, pain controlled, chest tubes not dumping, blood pressure a bit high on Cardene
Review of Systems
General: Other (Per HPI)
Objective Data
Data Reviewed
Vital Signs / I&O / Oxygen:
Vital Signs
Temp Pulse Resp BP Pulse Ox
98.8 F 65 24 117/61 93
03/13/24 06:00 03/13/24 06:05 03/13/24 06:05 03/13/24 05:00 03/13/24 06:05
Intake and Output
03/12/24 03/13/24 03/14/24
06:59 06:59 06:59
Intake Total 3478.45 / 3597.75 119.3 / 119.3
Output Total 1255 / 1285 30 / 30
Balance 2223.45 / 2312.75 89.3 / 89.3
SaO2 [CPAP/PSV] 98
SaO2 [SIMV] 99
SaO2 93
Nasal Cannula flow liters per 4
minute
Physical Exam
General: Respiratory Distress (n) and Comfortable
HEENT: Normocephalic, Anicteric and Moist Mucous Membranes
Cardiovascular: Regular Rhythm
Respiratory: Crackles (n), Rhonchi (n), Non-Labored Respirations, Accessory Resp Muscle Use (n) and Stridor (n)
GI: Soft, Non Distended and Non Tender
Neurology: Awake, Alert and No Motor Deficits
Skin: Warm, Good Color, Cyanosis (n), Jaundice (n) and Rash (n)
Labs/Micro/Reports
Lab Data
03/13/24 03:41
03/13/24 03:41
Laboratory Results
03/12/24 03/12/24 03/12/24
13:07 16:18 22:19
PT 19.2 H
INR 1.64
APTT 32.2
pH 7.42 7.47 H 7.41
pCO2 37 33 L 34 L
pO2 213 H 149 H 135 H
HCO3 24.0 24.0 21.6
O2 Delivery Level
03/13/24
03:41
PT 16.9 H
INR 1.39
APTT
pH
pCO2
pO2
HCO3
O2 Delivery Level
Microbiology
03/10/24 08:49 Nose MRSA Screen - Final
No Methicillin Resistant Staphylococcus aureus isolated.
[2024-03-13 08:06] LABS: Glucose - Point of Care 115 mg/dl (70-99)
--- NOTE | 2024-03-13 08:30 | PTCARENOTE ---
Patient received from traffic police officer RN; AAOx3, responds spontaneously to RN and follows commands; Friction rub present; Epicardial AV wires present with temporary pacemaker settings VVI 50/20/3; SR with SB, 1st AVB, prolonged QT on monitor; DP and
radial pulses present; Lungs diminished at bases; 93-96% on 4L NC; CTx4 draining sanguineous drainage - no tidaling, crepitus, or air leak noted; Fowler catheter draining clear, yellow urine - maintained for now d/t slowing urine output; Surgical
sites intact; RIJ Cordis with Brodie-laly floated to 52, right radial arterial line - all lines leveled and zeroed; PIVx1 #18 right FA; Insulin, Cardene, and Amiodarone infusing - see nursing flowsheets for more details; Lamar-laly discontinued and
removed per FRANCESCA Zamora orders; See nursing documentation for further information.
CI: 2.11
CO: 4.41
SVR: 961
[2024-03-13] MEDS: SENOKOT-S 1 TABLET PO ×2 (08:44→19:35)
[2024-03-13] MEDS: LOW STRENGTH ASPIRIN 81 MG PO (08:45)
[2024-03-13] MEDS: NEURONTIN 100 MG PO ×3 (08:45→22:13)
[2024-03-13] MEDS: PROTONIX 40 MG PO (08:45)
[2024-03-13] MEDS: PLAVIX 75 MG PO (08:45)
[2024-03-13] MEDS: PACERONE 200 MG PO (08:45)
[2024-03-13] MEDS: LOPRESSOR 12.5 MG PO (08:45)
[2024-03-13] MEDS: LIDOCAINE 4% PATCH 1 PATCH TOPICAL (08:46)
[2024-03-13] MEDS: BACTROBAN 2% OINTMENT 1 APPLIC NASAL ×2 (08:46→19:36)
--- NOTE | 2024-03-13 08:46 | W.PN.CARDCBS ---
Today's Communication / Plan
-
Routine post-op care per [facility]TS[facility]
Monitor HH
GDMT as tolerated; can consider carvedilol to assist in BP/HR
ASA/Plavix
PCSK9 2/2 statin intolerance
Impression / Plan
-
PCP: Carmen Mendez
Inspection Manager: Dr. Wilson
Impression:
s/p bioprosthetic AVR, bioprosthetic MVR, CABG x1, and MAYCOL clip 03/12/2024
Bicuspid aortic valve w/ severe
s/p 29 mm bioprosthetic AVR 03/12/2024
Moderate-severe mitral stenosis
s/p 31 mm bioprosthetic MVR 03/12/2024
CAD
CABG x 1 (reverse SVG from aorta to RPDA) 03/12/2024
Hypertension
Hyperlipidemia
h/o statin intolerance
h/o ETOH abuse
former tobacco abuse
HANNAH 02/18/2024: EF 65-70%, calcified mitral valve leaflets w/ restricted motion, mod mitral stenosis, mild MR, heavily calcified bicuspid aortic valve w/ fusion of RCC and LCC, severe with mild to mod AI, dilated ascending aorta at 4.5cm
HANNAH 03/12/2024: (post-op) EF 60%, well seated AVR and MVR, no paravalvular leaks, MAYCOL appears clipped with a small residual lumen, no color doppler seen distal to the clip.
Plan:
-s/p AVR, MVR, CABG x1, MAYCOL clip w/ Dr. Olivares 03/12/2024.
-Extubated 03/12; on cardene, nitro, insulin gtt
-CTs, Epiwires in place; Ulysses removed by [facility]TS[facility]
-Amio started overnight 2/2 brief NSVT; stopped due to bradycardia
-2 units PLT and 1 albumin given intra-op. 1 unit FFP given post op, with another planned. Hgb 9.7 post op. Continue to follow.
-Post op EKG reviewed. SR with 1st degree AV block, QTc prolonged. Repeat 03/13, SR CA 200 ms; QT 490/501 improved from prev. evidence of LVH
-K 3.7, mag 3.1; undergoing replete
-Aspirin and plavix.
-h/o statin intolerance, consider PCSK9 inhibitor as OP.
Progress Note - Inspection Manager
Subjective
Date of Service: March 13, 2024
Patient seen and examined this morning. No acute events overnight. Patient reporting inspiratory chest pain at incision/CT site. No sob, palpitations. Also noted mild LH. Tele SR; brief NSVT. Cardene, nitro, insulin gtt; swan removed.
Objective
Labs:
03/13/24 03:41
03/13/24 03:41
Labs
Hgb 7.9 g/dL (13.0-18.0) L 03/13/24 03:41
Hct 22.2 % (39.0-52.0) L 03/13/24 03:41
Plt Count 176 10^3/uL (130-400) 03/13/24 03:41
PT 16.9 Sec (11.4-14.6) H 03/13/24 03:41
INR 1.39 03/13/24 03:41
APTT 32.2 Sec (23.4-35.0) 03/12/24 13:07
Sodium 141 mmol/L (135-145) 03/13/24 03:41
Potassium 4.1 mmol/L (3.5-5.1) 03/13/24 03:41
BUN 25 mg/dl (9-20) H 03/13/24 03:41
Creatinine 0.9 mg/dL (0.7-1.3) 03/13/24 03:41
Glucose 123 mg/dl (70-99) H 03/13/24 03:41
Vital Signs and I&O:
Vital Signs
Temp Pulse Resp BP Pulse Ox
98.3 F 61 19 115/61 93
03/13/24 08:00 03/13/24 08:10 03/13/24 08:10 03/13/24 08:00 03/13/24 08:10
Vital Signs
Temp Pulse Resp BP Pulse Ox
98.3 F 61 19 115/61 93
03/13/24 08:00 03/13/24 08:10 03/13/24 08:10 03/13/24 08:00 03/13/24 08:10
Intake & Output
03/11/24 03/12/24 03/13/24 03/14/24
06:59 06:59 06:59 06:59
Intake Total 3478.45 / 3597.75 239.5 / 239.5
Output Total 1255 / 1285 75 / 75
Balance 2223.45 / 2312.75 164.5 / 164.5
Physical Exam
Physical Exam
GENERAL: no acute distress,
EYE: sclera anicteric
NECK: Supple, no JVD, R CVC in place
ENT: normal nose, moist mucosal membranes
CARDIAC: Regular rate and rhythm, +S1/S2, no murmur, rubs, or gallops; midline sternotomy c/d/i; CT, Epi wire in place
CHEST/PULMONARY: Decreased effort, clear breath sounds
ABDOMEN: Soft, without focal tenderness or distention
NEUROLOGICAL: Alert and oriented x3
SKIN: Warm and dry, no rash
PSYCH: Normal and appropriate interaction.
[2024-03-13] MEDS: MAGNESIUM OXIDE PO ×2 (08:49→20:00)
[2024-03-13 09:03] LABS: Glucose - Point of Care 106 mg/dl (70-99)
[2024-03-13 09:43] LABS: Glucose - Point of Care 124 mg/dl (70-99)
[2024-03-13] MEDS: NOVOLOG FLEXPEN 4 UNITS SC (09:43)
[2024-03-13] MEDS: ZOFRAN 4 MG IV (09:46)
[2024-03-13 10:04] LABS: Glucose - Point of Care 113 mg/dl (70-99)
[2024-03-13 11:02] LABS: Glucose - Point of Care 105 mg/dl (70-99)
[2024-03-13 11:38] LABS: Glucose - Point of Care 118 mg/dl (70-99)
--- NOTE | 2024-03-13 12:50 | PTCARENOTE ---
Cardene infusion titrated off at 1026; Insulin gtt discontinued; 1 U PRBC's ordered and given - VSS throughout and no transfusion reactions noted; Right radial arterial line discontinued; Amiodarone infusion discontinued; Patient in junctional
rhythm when sleeping - FRANCESCA Zamora notified and aware.
[2024-03-13] MEDS: NSS IV (13:05)
[2024-03-13] MEDS: FERRLECIT 110 MG IV (13:56)
[2024-03-13] MEDS: REGLAN 10 MG IV (14:19)
--- NOTE | 2024-03-13 17:00 | PTCARENOTE ---
Fowler removed per CVPA Nina German; Another episode of nausea - one time order of IV Reglan ordered and given; IV Cardene intermittently started while patient's BP elevated - SBP came down after PRN IV Dilaudid 0.5 mg dose; Patient able to get OOB to
chair with assist x2; Patient resting comfortably.
[2024-03-13] MEDS: APRESOLINE 5 MG IV (18:24)
--- NOTE | 2024-03-13 19:00 | PTCARENOTE ---
Assumed care of patient at 1900. Patient found OOB in chair at time of assessment. Patient is AOx4, follows commands appropriately, moves all extremities. Lung sounds are diminished throughout, patient is on 3L via NC with saO2 at 97%, CTx4 R/L
pleural to one atrium and 2xmeds to one atrium draining red sanguineous. Heart sounds have a regular rate and rhythm, there is a rub present on auscultation, there is no observable edema, and pulses are palpable. There are active BS in all four
quadrants, flatus is present, patient is DTV by 2100. Patient has sternal incision approx with surg adhesive CLERICAL CAR CHECKER, R groin puncture approx with surg adhesive CLERICAL CAR CHECKER, and RLE incision approx with surg adhesive SCOUT. There is a R IJ cordis receiving KVO
and R FA PIV. VSS. Patient given toradol for pain.
--- NOTE | 2024-03-13 19:04 | W.PN.ANS.POP ---
Anesthesia Post Operative
- Anesthesia Post Op Note
Vital Signs Stable-See Nursing Note: Yes
Airway Patent: Yes
Adequate Pain Control: Yes
Change in Mental Status: No
Current Postoperative Nausea & Vomiting: No
Anesthesia Complications: No
General Anesthetic Recall: No
Unplanned Admission: No
Post Op Hydration Adequate: Yes
[2024-03-13] MEDS: COREG 3.125 MG PO (19:33)
[2024-03-14] VITALS (46 sets, daily range): BP systolic 115–158; BP diastolic 56–89; BMI 25.5
--- NOTE | 2024-03-14 | PTCARENOTE ---
Patient reassessed. Patient with high SBP received orders to restart cardene, currently at 2.5 with SBP of 115. Pain well controlled at this time. Patient is in SR with first degree AV block and prolonged QT. Patient successfully voiding dark, edwige
urine.
[2024-03-14] MEDS: ROXICODONE 5 MG PO ×2 (02:40→20:20)
[2024-03-14 03:12] LABS: INR 1.41; PT 17.1 Sec (11.4-14.6)
[2024-03-14 03:18] LABS: Hematocrit 26.8 % (39.0-52.0); Hemoglobin 9.7 g/dL (13.0-18.0); Mean Corp Hgb Conc. 36.2 g/dL (33.0-37.0); Mean Corpuscular Hgb 31.5 pg (27.0-31.0); Mean Platelet Volume 11.1 fL (7.4-10.4); Platelet Count 162 10^3/uL (130-400); Red Blood Cell Count 3.08 10^6/uL (4.70-6.10); Red Cell Dist. Width 13.1 % (11.5-14.5); White Blood Cell Count 16.8 10^3/uL (4.8-10.8)
[2024-03-14] MEDS: MYLICON 160 MG PO (03:56)
[2024-03-14 04:37] LABS: Blood Urea Nitrogen 30 mg/dl (9-20); Calcium 8.2 mg/dl (8.4-10.2); Carbon Dioxide 21 mmol/L (22-30); Chloride 103 mmol/L (98-107); Estimated Creatinine Clearance 108 ml/min; Glucose 113 mg/dl (70-99); Magnesium 2.5 mg/dl (1.6-2.3); Potassium 4.5 mmol/L (3.5-5.1); Sodium 134 mmol/L (135-145); eGFR > 60.00
[2024-03-14] MEDS: CARDENE 200 IV ×2 (04:45→10:43)
[2024-03-14] MEDS: APRESOLINE 5 MG IV ×2 (05:23→16:25)
--- NOTE | 2024-03-14 06:03 | PTCARENOTE ---
Patient reassessed. Given Ju 5 for pain without much relief. Followed up with toradol for effective management of pain. Cardene titrated up to 7.5. Patient given prn dose hydralizine for SBP>140. AM labs obtained. AM hygiene care provided. O2
weaned to 2L.
[2024-03-14] MEDS: TYLENOL 1000 MG PO ×3 (06:39→22:14)
--- NOTE | 2024-03-14 06:52 | W.PN.CT ---
Addendum entered and electronically signed by Tahir Hook MD 03/14/24 09:20:
I saw and examined the patient.
The PA's note was reviewed and I agree with the note.
Comment:
POD#2
Continue Coreg
D/C CTs
Prolonged QT w/ intermittent junction yesterday; NSR overnight; maintain wires
OOB/IS/ambulate
Start coumadin tonight
Original Note:
Today's Communication / Plan
-
-pod#2
-no issues overnight
-on low dose Cardene 2.5 overnight to keep SBP <130. Coreg 3.125 mg started last night. Will start Norvasc 5 mg this am (takes 10 mg qd at home)
-s/p 1 pRBC on 03/13 for Hg 7.9. Hg today 9.7
-CT output: 2 meds 70/135, 2 pleur 10/130 in 12/24 hrs
-prolonged Qt 528/544 ms- off iv Amio. Will hold off po Amio, Zofran, Reglan. Follow daily ECGs
-maintain pw
-current meds (ASA, Plavix, Coreg, Norvasc, Protonix). Amio held d/t bradycardia. Statin intolerance - on PCSK9 injection (Repatha) at home
-encourage IS, OOB
Assessment / Plan
-
- Severe aortic valve stenosis, bypassed morphology, moderately severe mitral valve stenosis and insufficiency, single-vessel coronary disease- s/p CABG x 1 [reverse saphenous vein graft from aorta to RPDA]; Surgical aortic valve replacement [29 mm
bioprosthesis RESILIA INSPIRIS] requiring extensive debridement into the annulus; Surgical mitral valve replacement using a chordal sparing method [31 mm bioprosthesis MITRIS RESILIA] requiring extensive debridement of mitral annular calcification;
Left atrial appendage exclusion [45 mm clip] by Dr. Olivares on 03/12/24, pod #2
- Intraop HANNAH: LVEF 65% preop with significant LVH, no regional wma following surgery. After coming off of cardiopulmonary bypass, there was no paravalvular leak that was seen on either the mitral or aortic valve prostheses. Both bioprosthesis had
normal excursion of the leaflets, the mean gradient across the mitral valve was essentially 0 to 1 mmHg and aortic valve was 3 mmHg. There was a slight LVOT gradient of approximately 10 mmHg and again severe left ventricular hypertrophy. The left
atrial appendage was free of any thrombus or debris preop and found to be totally occlusive postop with only a small residual stump that was less than 8 mm.
- Bicuspid aortic valve morphology, type II with severe stenosis
- Moderately severe mitral valve stenosis with severe mitral annular calcification, mild degree of insufficiency
- Hypertension
- History of alcohol abuse
- Former smoker, quit in 2000
- Hyperlipidemia- No statin d/t intolerance, on PCSK9 (Repatha) at home
- Single-vessel coronary artery disease
- Mild aortic ectasia
- Moderately severe left ventricular hypertrophy
- Urinary urgency
- Acute postop blood loss anemia - stable, s/p 1 pRBC on 03/13
- Acute postop coagulopathy - s/p 2 unit platelets and 2 FFPs
- Acute postop atelectasis
- Acute postop hypovolemia with subsequent hypervolemia
- Acute postop 10 beat NSVT - tx with Amio bolus and drip
- Acute postop prolonged Qt
Discussed patient care with: Nursing and Care Team
Subjective
-
Date of Service: March 14, 2024
Objective Data
-
PT 16.9 Sec (11.4-14.6) H 03/13/24 03:41
INR 1.39 03/13/24 03:41
APTT 32.2 Sec (23.4-35.0) 03/12/24 13:07
Vital Signs
Vital Signs
Temp Pulse Resp BP Pulse Ox
98.1 F 60 18 115/60 95
03/13/24 22:48 03/14/24 00:40 03/13/24 22:48 03/14/24 00:00 03/14/24 00:40
CT Intake/Output/Weight
03/13/24 03/13/24 03/14/24
06:59 18:59 06:59
Intake Total 1907.6 / 3597.75 2108.5 / 2128.5 20 8.5
Output Total 585 / 1285 420 / 625 205 / 625
Balance 1322.6 / 2312.75 1688.5 / 1503.5 -185 / 1503.5
SaO2: 95
Physical Exam
-
General: Awake and AOx3
Cardiovascular: Regular rate & rhythm, No Murmurs and Rub
Respiratory: Decreased Breath Sounds
Sternum: Stable
Incision: Clean, Dry and Intact
Extremities: No Edema (2+ PTs b/l)
Data Reviewed
-
Lab Results: Results Reviewed
Medications: Active Meds Reviewed
Chest X-Ray: Report Reviewed and Image Reviewed
ECG: Report Reviewed and Image Reviewed
--- NOTE | 2024-03-14 08:23 | W.PN.CARDCBS ---
Today's Communication / Plan
-
Monitor on telemetry; avoid QT prolonging agents
Encourage ambulation/PT OT
Agree with BB, amlodipine; can add ACEI/ARB as GDMT for additional BP control if needed
Impression / Plan
-
PCP: Carmen Mendez
Log Raft Worker: Dr. Wilson
Impression:
s/p bioprosthetic AVR, bioprosthetic MVR, CABG x1, and MAYCOL clip 03/12/2024
Bicuspid aortic valve w/ severe
s/p 29 mm bioprosthetic AVR 03/12/2024
Moderate-severe mitral stenosis
s/p 31 mm bioprosthetic MVR 03/12/2024
CAD
CABG x 1 (reverse SVG from aorta to RPDA) 03/12/2024
Hypertension
Hyperlipidemia
h/o statin intolerance
h/o ETOH abuse
former tobacco abuse
HANNAH 02/18/2024: EF 65-70%, calcified mitral valve leaflets w/ restricted motion, mod mitral stenosis, mild MR, heavily calcified bicuspid aortic valve w/ fusion of RCC and LCC, severe with mild to mod AI, dilated ascending aorta at 4.5cm
HANNAH 03/12/2024: (post-op) EF 60%, well seated AVR and MVR, no paravalvular leaks, MAYCOL appears clipped with a small residual lumen, no color doppler seen distal to the clip.
Plan:
-s/p AVR, MVR, CABG x1, MAYCOL clip w/ Dr. Olivares 03/12/2024.
-Extubated 03/12; on cardene; nitro, insulin gtt weaned off
-Coreg 6.25 and amlodipine started for hypertension/GDMT
-CTs, Epiwires in place
-Amio started overnight 2/2 brief NSVT; stopped due to bradycardia, long QT
-2 units PLT and 1 albumin given intra-op. 1 unit FFP given post op, with another planned. Hgb 9.7 post op. Continue to follow.
-Post op EKG reviewed. SR with 1st degree AV block, QTc prolonged. Repeat 03/13, SR MI 200 ms; QT 490/501 improved from prev. evidence of LVH; increased again 03/14.
-K 3.7, mag 3.1; undergoing replete
-Aspirin and plavix.
-h/o statin intolerance, consider PCSK9 inhibitor as OP.
Progress Note - Log Raft Worker
Subjective
Date of Service: March 14, 2024
Patient seen and examined. No acute events overnight. Patient reporting cp with deep inspiration at sternotomy and CT sites. No other complaints at this time. No lh, dizziness, or syncope. Patient resting comfortably in chair. CT, epiwires in place.
on cardene gtt.
Objective
Labs:
03/14/24 02:51
03/14/24 02:51
Labs
Hgb 9.7 g/dL (13.0-18.0) L D 03/14/24 02:51
Hct 26.8 % (39.0-52.0) L 03/14/24 02:51
Plt Count 162 10^3/uL (130-400) 03/14/24 02:51
PT 17.1 Sec (11.4-14.6) H 03/14/24 02:51
INR 1.41 03/14/24 02:51
APTT 32.2 Sec (23.4-35.0) 03/12/24 13:07
Sodium 134 mmol/L (135-145) L 03/14/24 02:51
Potassium 4.5 mmol/L (3.5-5.1) 03/14/24 02:51
BUN 30 mg/dl (9-20) H 03/14/24 02:51
Creatinine 0.8 mg/dL (0.7-1.3) 03/14/24 02:51
Glucose 113 mg/dl (70-99) H 03/14/24 02:51
Vital Signs and I&O:
Vital Signs
Temp Pulse Resp BP Pulse Ox
98.0 F 66 20 151/57 94
03/14/24 03:00 03/14/24 07:50 03/14/24 03:00 03/14/24 07:13 03/14/24 07:50
Vital Signs
Temp Pulse Resp BP Pulse Ox
98.0 F 66 20 151/57 94
03/14/24 03:00 03/14/24 07:50 03/14/24 03:00 03/14/24 07:13 03/14/24 07:50
Intake & Output
03/12/24 03/13/24 03/14/24 03/15/24
06:59 06:59 06:59 06:59
Intake Total 3478.45 / 3597.75 2128.5 / 2128.5
Output Total 1255 / 1285 850 / 850
Balance 2223.45 / 2312.75 1278.5 / 1278.5
Physical Exam
Physical Exam
GENERAL: no acute distress,
EYE: sclera anicteric
NECK: Supple, no JVD, R CVC in place
ENT: normal nose, moist mucosal membranes
CARDIAC: Regular rate and rhythm, +S1/S2, no murmur, rubs, or gallops; midline sternotomy c/d/i; CT, Epi wire in place
CHEST/PULMONARY: Decreased effort, clear breath sounds
ABDOMEN: Soft, without focal tenderness or distention
NEUROLOGICAL: Alert and oriented x3
SKIN: Warm and dry, no rash
PSYCH: Normal and appropriate interaction.
[2024-03-14] MEDS: LIDOCAINE 4% PATCH 1 PATCH TOPICAL (08:29)
[2024-03-14] MEDS: COREG 6.25 MG PO (08:32)
[2024-03-14] MEDS: MAGNESIUM OXIDE 500 MG PO ×2 (08:32→20:20)
[2024-03-14] MEDS: NEURONTIN 100 MG PO ×3 (08:32→22:14)
[2024-03-14] MEDS: SENOKOT-S 1 TABLET PO ×2 (08:32→20:20)
[2024-03-14] MEDS: LOW STRENGTH ASPIRIN 81 MG PO (08:32)
[2024-03-14] MEDS: PROTONIX 40 MG PO (08:32)
[2024-03-14] MEDS: PLAVIX 75 MG PO (08:32)
[2024-03-14] MEDS: BACTROBAN 2% OINTMENT 1 APPLIC NASAL ×2 (08:35→20:20)
[2024-03-14] MEDS: NORVASC 5 MG PO (08:37)
[2024-03-14] MEDS: MYLICON 80 MG PO (10:04)
[2024-03-14] MEDS: LASIX 20 MG IV (10:43)
[2024-03-14] MEDS: TORADOL 15 MG IV (11:04)
[2024-03-14] MEDS: FERRLECIT 110 MG IV (16:31)
[2024-03-14] MEDS: DILAUDID 0.25 MG IV (16:31)
[2024-03-14] MEDS: NSS 500 IV (16:31)
[2024-03-14] MEDS: COUMADIN 2.5 MG PO (16:33)
[2024-03-14] MEDS: COREG 12.5 MG PO (20:20)
--- NOTE | 2024-03-14 20:20 | PTCARENOTE ---
Care of patient assumed at 1900. Patient awake and alert, sitting up in bed in NAD. NSR with 1st degree HB on tele, rates 70's. Patient hypertensive - given scheduled Coreg PO - hotel night auditor PA made aware, awaiting reassessment in one hour before
proceeding with PRN Hydralazine. Trace - +1 edema in B/L hands. DP pulses present, L>R. Lungs diminished throughout, on 2LNC satting 92%. IS encouraged. BS present, abdomen SNT, poor appetite, protein-dense diet recommended and suggestions made for
breakfast in AM. Patient in agreement. Patient voiding in the urinal, urine edwige, concentrated. C/o 6/10 pain, see MAR for med administration. Midsternal chest incision CDI, ecchymotic, R groin puncture and RSVG site CDI, ecchymotic w/ Dermabond, R
radial de-access site dressing CDI. RIJ Cordis present infusing KVO, R forearm IV INT intact.
--- NOTE | 2024-03-14 23:04 | PTCARENOTE ---
Patient with 10 minutes period of zohaib MUKHERJEE aware. Converted back to NSR without intervention, no symptoms, patient sleeping in bed. HR 60's.
[2024-03-15] VITALS (34 sets, daily range): BP systolic 117–173; BP diastolic 56–94; PULSE 115; O2SAT 93; BMI 25.5
[2024-03-15] MEDS: APRESOLINE 5 MG IV ×3 (00:14→18:22)
[2024-03-15] MEDS: ROXICODONE 5 MG PO ×6 (00:20→21:49)
--- NOTE | 2024-03-15 00:24 | PTCARENOTE ---
Patient HR irregularly irregular, periodically converts from NSR to bigeminy. Patient denies symptoms, CP, palpitations. PA aware. C/o 12/02 sternal pain, PRN oxycodone administered, see MAR. Maintained on 2LNC, hydralazine PRN given for
hypertension. Assessment of needs ongoing, call salazar within reach.
--- NOTE | 2024-03-15 04:55 | PTCARENOTE ---
Patient hypertensive, given Hydralazine PRN per order. Oxycodone for pain 7/10 in sternal area. Labs drawn and sent.
[2024-03-15 05:12] LABS: Hemoglobin 8.5 g/dL (13.0-18.0); Mean Corp Hgb Conc. 35.4 g/dL (33.0-37.0); Mean Corpuscular Hgb 32.2 pg (27.0-31.0); Mean Corpuscular Volume 90.9 fL (80.0-94.0); Mean Platelet Volume 11.2 fL (7.4-10.4); Platelet Count 150 10^3/uL (130-400); Red Blood Cell Count 2.64 10^6/uL (4.70-6.10); Red Cell Dist. Width 12.8 % (11.5-14.5); White Blood Cell Count 13.4 10^3/uL (4.8-10.8)
[2024-03-15 05:16] LABS: INR 1.48; PT 17.7 Sec (11.4-14.6)
--- NOTE | 2024-03-15 05:25 | W.PN.CT ---
Today's Communication / Plan
-
-pod#3
-Frequent PAC's in a bigeminy pattern for most of the night, going in and out of NSR. No symptoms
-required PRN hydralazine for BP, Coreg up to 12.5 mg and amlodipine up to 10 mg
-CTs DCd
-prolonged Qt 528/544 ms- off iv Amio. Will hold off po Amio, Zofran, Reglan. Follow daily ECGs
-maintain pw
-current meds (ASA, Plavix, Coreg, Norvasc, Protonix). Amio held d/t bradycardia. Statin intolerance - on PCSK9 injection (Repatha) at home
-s/p 2.5 mg warfarin last night, INR 1.48 today
-encourage IS, OOB
Assessment / Plan
-
- Severe aortic valve stenosis, bypassed morphology, moderately severe mitral valve stenosis and insufficiency, single-vessel coronary disease- s/p CABG x 1 [reverse saphenous vein graft from aorta to RPDA]; Surgical aortic valve replacement [29 mm
bioprosthesis RESILIA INSPIRIS] requiring extensive debridement into the annulus; Surgical mitral valve replacement using a chordal sparing method [31 mm bioprosthesis MITRIS RESILIA] requiring extensive debridement of mitral annular calcification;
Left atrial appendage exclusion [45 mm clip] by Dr. Olivares on 03/12/24, pod #3
- Intraop HANNAH: LVEF 65% preop with significant LVH, no regional wma following surgery. After coming off of cardiopulmonary bypass, there was no paravalvular leak that was seen on either the mitral or aortic valve prostheses. Both bioprosthesis had
normal excursion of the leaflets, the mean gradient across the mitral valve was essentially 0 to 1 mmHg and aortic valve was 3 mmHg. There was a slight LVOT gradient of approximately 10 mmHg and again severe left ventricular hypertrophy. The left
atrial appendage was free of any thrombus or debris preop and found to be totally occlusive postop with only a small residual stump that was less than 8 mm.
- Bicuspid aortic valve morphology, type II with severe stenosis
- Moderately severe mitral valve stenosis with severe mitral annular calcification, mild degree of insufficiency
- Hypertension
- History of alcohol abuse
- Former smoker, quit in 2000
- Hyperlipidemia- No statin d/t intolerance, on PCSK9 (Repatha) at home
- Single-vessel coronary artery disease
- Mild aortic ectasia
- Moderately severe left ventricular hypertrophy
- Urinary urgency
- Acute postop blood loss anemia - stable, s/p 1 pRBC on 03/13
- Acute postop coagulopathy - s/p 2 unit platelets and 2 FFPs
- Acute postop atelectasis
- Acute postop hypovolemia with subsequent hypervolemia
- Acute postop 10 beat NSVT - tx with Amio bolus and drip
- Acute postop prolonged Qt
Subjective
-
Date of Service: March 15, 2024
Objective Data
-
Lab Results
03/15/24 04:50
PT 17.1 Sec (11.4-14.6) H 03/14/24 02:51
INR 1.41 03/14/24 02:51
APTT 32.2 Sec (23.4-35.0) 03/12/24 13:07
Vital Signs
Vital Signs
Temp Pulse Resp BP Pulse Ox
97.8 F 77 16 148/61 94
03/15/24 04:00 03/15/24 05:00 03/15/24 04:00 03/15/24 05:00 03/15/24 05:00
CT Intake/Output/Weight
03/14/24 03/14/24 03/15/24
06:59 18:59 06:59
Intake Total / 8.5 45 / 265 220 / 265
Output Total 430 / 850 690 / 1150 460 / 1150
Balance -410 / 1278.5 -645 / -885 -240 / -885
SaO2: 94
Physical Exam
-
General: Awake and Oriented
Cardiovascular: Irregular rate & rhythm
Respiratory: Clear and Equal
Sternum: Stable
Incision: Clean, Dry and Intact
Extremities: No Edema and No Erythema
Data Reviewed
-
Lab Results: Results Reviewed
Medications: Active Meds Reviewed
Chest X-Ray: Report Reviewed
ECG: Report Reviewed
[2024-03-15 05:27] LABS: Blood Urea Nitrogen 26 mg/dl (9-20); Calcium 8.1 mg/dl (8.4-10.2); Carbon Dioxide 27 mmol/L (22-30); Chloride 101 mmol/L (98-107); Estimated Creatinine Clearance 124 ml/min; Glucose 110 mg/dl (70-99); Magnesium 2.5 mg/dl (1.6-2.3); Sodium 134 mmol/L (135-145); eGFR > 60.00
[2024-03-15] MEDS: TYLENOL 1000 MG PO ×3 (06:05→21:24)
--- NOTE | 2024-03-15 06:24 | PTCARENOTE ---
Patient converted to afib after getting OOB to chair. CVNP aware, amio bolus + gtt ordered and IV metoprolol. Patient denies symptoms at this time.
[2024-03-15] MEDS: LOPRESSOR 2.5 MG IV ×2 (06:32→07:12)
[2024-03-15] MEDS: CORDARONE 103 MG IV ×2 (06:41→09:03)
[2024-03-15 07:05] LABS: B.E. - POC -2.1 mmol/L; Glucose - POC 130 mg/dl (70-99); HCO3 - POC 23 mmol/L (21-29); Hematocrit - POC 31 % PCV (42-52); Hemodilution- POC Yes; Hemoglobin Calculated - POC 10.5; Ionized Calcium - POC 1.25 mmol/L (1.12-1.27); O2 Saturation %Calculated-POC 99.9 % (92-96); PCO2 - POC 39 mmHg (35-45); PO2 - POC 267 mmHg (80-100); POC Comment POST; Potassium - POC 4.3 mmol/L (3.6-5.0); Sodium - POC 141 mmol/L (135-145); pH - POC 7.38 (7.35-7.45)
--- NOTE | 2024-03-15 07:18 | PTCARENOTE ---
Metoprolol given in conjunction with amio bolus. Additional IVP metoprolol subsequently administered. Patient denies symptoms, BP improved.
[2024-03-15] MEDS: CORDARONE 518 MG IV (07:19)
--- NOTE | 2024-03-15 08:45 | PTCARENOTE ---
Assumed care of patient. Walking rounds completed with previous RN. Pt assessed while he was sitting in the chair. Pt alert and oriented x4. Pt rates sternal pain 5/10. Denies nausea and shortness of breath. AGUILAR with equal strength throughout. Afib
on tele with rates in the 110s-130s. BP 133/79. Irregular heart tones. Epicardial AV wires to temp pacer box set to VVI 30//2. No pacing noted. Bilateral radial and DP pulses palpable. Hand edema noted. POX 95% on 2L NC, titrated to RA, POX 93%.
CT HOME CARE PHYSICAL THERAPIST notified of CXR results. Lungs clear throughout, diminished to right upper lobe. No cough noted. IS encouraged-1000ml achieved. Abdomen soft, round, nontender. +BS. Pt voiding small amounts of edwige urine in the urinal. Sternal incision
approximated with skin glue, SCOUT. Old chest tube sites covered, dressing CDI. Right groin puncture site with skin glue, SCOUT. Right knee incision approximated with skin glue, MANAGER OF ENTERPRISE. Right IJ cordis intact infusing NSS KVO and Amio gtt at 1mg/min. Right
wrist 18g PIV intact. See MAR for medication administration. See worklist for complete nursing assessment. Plan of care reviewed and patient in agreement.
[2024-03-15] MEDS: LIDOCAINE 4% PATCH 1 PATCH TOPICAL (09:03)
[2024-03-15] MEDS: SENOKOT-S 1 TABLET PO ×2 (09:03→19:36)
[2024-03-15] MEDS: LASIX 40 MG IV (09:03)
[2024-03-15] MEDS: BACTROBAN 2% OINTMENT 1 APPLIC NASAL ×2 (09:03→19:35)
[2024-03-15] MEDS: FLUSH (NSS) 1 FLUSH IV (09:03)
[2024-03-15] MEDS: COREG 12.5 MG PO ×2 (09:04→19:36)
[2024-03-15] MEDS: NEURONTIN 100 MG PO ×3 (09:04→21:24)
[2024-03-15] MEDS: MYLICON 80 MG PO ×2 (09:04→17:47)
[2024-03-15] MEDS: KCL 40 MEQ PO (09:04)
[2024-03-15] MEDS: PROTONIX 40 MG PO (09:04)
[2024-03-15] MEDS: PLAVIX 75 MG PO (09:04)
[2024-03-15] MEDS: NORVASC 10 MG PO (09:04)
[2024-03-15] MEDS: LOW STRENGTH ASPIRIN 81 MG PO (09:04)
[2024-03-15] MEDS: MAGNESIUM OXIDE 500 MG PO (09:05)
[2024-03-15] MEDS: NSS IV (10:20)
--- NOTE | 2024-03-15 10:53 | CM ---
Reviewed chart. Met with Mr. Olvera to review discharge plans. He states he is feeling okay. We reviewed a home visit by the Transitional Care Nurse. He is agreeable to home visit. Prior to admission he resides with his spouse in a one story
home with three steps to enter. Prior to admission he was independent with ambulation and adls. He does not have any DME in the home. He has a prescription plan and uses [facility]. His spouse works outside the home. His spouse and other
family members will be available to assist in his care if needed. Medical work-up in progress. The discharge plan is to return home with his spouse and a home visit by the Transitional Care NUrse when medically stable.
--- NOTE | 2024-03-15 10:58 | W.PN.CARDCBS ---
Addendum entered and electronically signed by Owen Diehl MD 03/15/24 12:53:
Patient now postop day 3 with bioprosthetic AVR/bioprosthetic MVR, CABG x 1 with left atrial clip
Currently in A-fib with RVR, vaguely dizzy when standing, no specific complaints
PMH/PSH/SH/FH: Reviewed
Allergies: Statins
Meds reviewed starting warfarin today, currently on aspirin and clopidogrel, on carvedilol and IV amiodarone
131/82, pulse 97, respirate 16, no acute distress, lungs are clear, incision intact, irregular rate and rhythm without obvious murmurs, tachycardic JVD okay abdomen benign extremities without clubbing cyanosis or edema
Chest x-ray today minimal blunting, cardiomegaly aortic and mitral prostheses, small pneumo
ECG A-fib, LVH, nonspecific ST and T changes, QRS widening
Hemoglobin 8.5, BUN and creatinine 26 and 0.7
Impression:
See below
Plan:
Overall doing well despite atrial fibrillation, continue IV Amio, follow QT, with QRS widening, QTc of less concern
Eventual de-escalation of antiplatelet/anticoagulation regimen
Original Note:
Today's Communication / Plan
-
Continue amio gtt
Follow QTc
Continue coreg, amlodipine
Continue post op care
Impression / Plan
-
PCP: Carmen Mendez
Etched Circuit Processor: Dr. Wilson
Impression:
s/p bioprosthetic AVR, bioprosthetic MVR, CABG x1, and MAYCOL clip 03/12/2024
Bicuspid aortic valve w/ severe
s/p 29 mm bioprosthetic AVR 03/12/2024
Moderate-severe mitral stenosis
s/p 31 mm bioprosthetic MVR 03/12/2024
CAD
CABG x 1 (reverse SVG from aorta to RPDA) 03/12/2024
Post-op atrial fibrillation w/ RVR 03/15/2024
started on amiodarone gtt
Prolonged QT
Anemia
Hypertension
Hyperlipidemia
h/o statin intolerance, on Repatha
h/o ETOH abuse
former tobacco abuse
HANNAH 02/18/2024: EF 65-70%, calcified mitral valve leaflets w/ restricted motion, mod mitral stenosis, mild MR, heavily calcified bicuspid aortic valve w/ fusion of RCC and LCC, severe with mild to mod AI, dilated ascending aorta at 4.5cm
HANNAH 03/12/2024: (post-op) EF 60%, well seated AVR and MVR, no paravalvular leaks, MAYCOL appears clipped with a small residual lumen, no color doppler seen distal to the clip.
Plan:
-s/p AVR, MVR, CABG x1, MAYCOL clip w/ Dr. Olivares 03/12/2024.
-BP improved w/ coreg and amlodipine.
-Went into rapid atrial fibrillation in AM 03/15. Seems to be mostly asymptomatic, however does note some possible lightheadedness.
-Restarted on amio gtt this AM.
-Prolonged QT noted on post-op EKG. Continue to follow. QTc 503 ms by EKG 03/15 AM.
-2 units PLT and 1 albumin given intra-op. 2 unit FFP given post op. 1 unit PRBCs 03/13. Hgb 8.5 in AM 03/15. Continue to follow.
-Aspirin and Plavix. Coumadin started in PM 03/14. INR 1.48
-h/o statin intolerance, on PCSK9 inhibitor as OP.
Progress Note - Etched Circuit Processor
Subjective
Date of Service: March 15, 2024
Feels well overall despite rapid atrial fibrillation.
Objective
Labs:
03/15/24 04:50
03/15/24 04:50
Labs
Hgb 8.5 g/dL (13.0-18.0) L 03/15/24 04:50
Hct 24.0 % (39.0-52.0) L 03/15/24 04:50
Plt Count 150 10^3/uL (130-400) 03/15/24 04:50
PT 17.7 Sec (11.4-14.6) H 03/15/24 04:50
INR 1.48 03/15/24 04:50
APTT 32.2 Sec (23.4-35.0) 03/12/24 13:07
Sodium 134 mmol/L (135-145) L 03/15/24 04:50
Potassium 4.0 mmol/L (3.5-5.1) 03/15/24 04:50
BUN 26 mg/dl (9-20) H 03/15/24 04:50
Creatinine 0.7 mg/dL (0.7-1.3) 03/15/24 04:50
Glucose 110 mg/dl (70-99) H 03/15/24 04:50
Vital Signs and I&O:
Vital Signs
Temp Pulse Resp BP Pulse Ox
98.3 F 107 18 133/79 92
03/15/24 08:00 03/15/24 09:30 03/15/24 08:00 03/15/24 09:00 03/15/24 09:30
Vital Signs
Temp Pulse Resp BP Pulse Ox
98.3 F 107 18 133/79 92
03/15/24 08:00 03/15/24 09:30 03/15/24 08:00 03/15/24 09:00 03/15/24 09:30
Intake & Output
03/13/24 03/14/24 03/15/24 03/16/24
06:59 06:59 06:59 06:59
Intake Total 3478.45 / 3597.75 2128.5 / 2128.5 265 / 265 383.3 / 383.3
Output Total 1255 / 1285 850 / 850 1150 / 1150 220 / 220
Balance 2223.45 / 2312.75 1278.5 / 1278.5 -885 / -885 163.3 / 163.3
Physical Exam
Physical Exam
GENERAL: no acute distress
EYE: sclera anicteric
CARDIAC: irregularly irregular, +S1/S2, no murmur
PULM: CTA b/l, no wheezes/rales
NEUROLOGICAL: Alert and oriented x3
SKIN: Warm and dry, no rash
PSYCH: Normal and appropriate interaction.
--- NOTE | 2024-03-15 12:10 | PTCARENOTE ---
Pt reassessed. Pt currently in Afib with rates in the 130s. BP 131/82. Pt will occasionally try to convert to NSR with v-paced beats, but then goes back into afib. Pt asymptomatic. Voiding clear yellow urine in the urinal. Amio continues to infuse
at 1mg/min. No other acute changes from previous assessment.
[2024-03-15] MEDS: FERRLECIT 110 MG IV (13:09)
--- NOTE | 2024-03-15 15:50 | PTCARENOTE ---
Patient oob to chair for late lunch, vitals are stable on room air. Patient converted to NSR around 1400...amio gtt continues per protocol at 0.5mg. Patient updated on plan of care and medication administration for the rest of day shift. Oxycodone
given for pain per order. See MAR/flowsheets for further care details.
[2024-03-15] MEDS: COUMADIN 5 MG PO (17:05)
[2024-03-15] MEDS: MAGNESIUM OXIDE PO (19:21)
--- NOTE | 2024-03-15 20:00 | PTCARENOTE ---
Patient received from Adia RN; AAOx3, responds spontaneously to RN and follows commands; VSS; Epicardial AV wires present with temporary pacemaker settings VVI 50/10/2; SR with 1st AVB on monitor; DP and radial pulses present; Lungs diminished
at bases; 95-98% on RA; Urinating edwige urine in urinal; Surgical sites intact; RIJ Cordis with amiodarone and KVO infusing - see nursing flowsheets for further details; PIVx1 #18 right FA; PRN IV Hydralazine given by previous RN d/t high SBP - CVPA
Ed B. states no need for further BP meds after PO Carvedilol for now; See nursing documentation for further information.
[2024-03-15] MEDS: FLEXERIL 5 MG PO (21:07)
[2024-03-16] VITALS (19 sets, daily range): BP systolic 108–181; BP diastolic 56–103; PULSE 65; O2SAT 96–97; BMI 25.4
--- NOTE | 2024-03-16 | PTCARENOTE ---
Patient received from prev RN. walking rounds completed. patient resting in bed at time of assessment. AAOx3. VSS. Epicardial AV wires to temporary pacemaker with backupsettings VVI 50/. SR with 1st AVB on monitor. HR 70s-80s. +pulses . trace
edema. 96-98% on RA. lungs diminished. using urinal. +bs. All surgical sites c/d/i. RIJ Cordis patent with amiodarone @ 0.5 mcg infusing. no complaints of pain at this time. will continue to monitor.
--- NOTE | 2024-03-16 02:32 | W.PN.CT ---
Today's Communication / Plan
-
Plan:
-No major issues overnight, pt currently in NSR, on Amiodarone gtt, will d/c today per protocol
-No further a-fib since the ~ 8hrs on POD#3, had a conversion pause
-Pt is currently on Coumadin, INR 1.99 after 2 doses of 2.5 and 5 mg. Consider 2.5 mg today (pt on Amiodarone gtt which can increase INR)
-Noted to be hypertensive postop, on Coreg, Norvasc, and hydralazine PRN
-Wt is up 15 lbs from preop, wrote for 40mg IV Lasix BID and KCL. Cont. diuresis, fluid restriction
-Postop prolonged QT, holding po Amio, Zofran, Reglan. Follow daily ECGs
-Noted to have small right apical ptx following chest tube removal yesterday, 03/14. F/U cxr this AM. Moved 2-view cxr to tomorrow 03/17
-Cont. current meds (ASA, Plavix, Coreg, Norvasc, Protonix). Statin intolerance - on PCSK9 injection (Repatha) at home
-Maintain temporary PW
-Consider d/c of cordis after amiodarone gtt
-Encourage use of IS
-OOB into chair/Ambulate
-Home in 1-2 days
Assessment / Plan
-
- Severe aortic valve stenosis, bypassed morphology, moderately severe mitral valve stenosis and insufficiency, single-vessel coronary disease- s/p CABG x 1 [reverse saphenous vein graft from aorta to RPDA]; Surgical aortic valve replacement [29 mm
bioprosthesis RESILIA INSPIRIS] requiring extensive debridement into the annulus; Surgical mitral valve replacement using a chordal sparing method [31 mm bioprosthesis MITRIS RESILIA] requiring extensive debridement of mitral annular calcification;
Left atrial appendage exclusion [45 mm clip] by Dr. Olivares on 03/12/24, pod #4
- Intraop HANNAH: LVEF 65% preop with significant LVH, no regional wma following surgery. After coming off of cardiopulmonary bypass, there was no paravalvular leak that was seen on either the mitral or aortic valve prostheses. Both bioprosthesis had
normal excursion of the leaflets, the mean gradient across the mitral valve was essentially 0 to 1 mmHg and aortic valve was 3 mmHg. There was a slight LVOT gradient of approximately 10 mmHg and again severe left ventricular hypertrophy. The left
atrial appendage was free of any thrombus or debris preop and found to be totally occlusive postop with only a small residual stump that was less than 8 mm.
- Bicuspid aortic valve morphology, type II with severe stenosis
- Moderately severe mitral valve stenosis with severe mitral annular calcification, mild degree of insufficiency
- Hypertension
- History of alcohol abuse
- Former smoker, quit in 2000
- Hyperlipidemia- No statin d/t intolerance, on PCSK9 (Repatha) at home
- Single-vessel coronary artery disease
- Mild aortic ectasia
- Moderately severe left ventricular hypertrophy
- Urinary urgency
- Acute postop blood loss anemia - stable, s/p 1 pRBC on 03/13
- Acute postop coagulopathy - s/p 2 unit platelets and 2 FFPs
- Acute postop atelectasis
- Acute postop hypovolemia with subsequent hypervolemia
- Acute postop 10 beat NSVT - tx with Amio bolus and drip
- Acute postop prolonged Qt
- Acute postop a-fib with RVR, conversion pause
- Acute postop stable right apical ptx post chest tube removal
Discussed patient care with: Cardiology, Nursing, Respiratory Therapy, Pharmacy and Care Team
Subjective
Procedure
CABG x 1 [reverse saphenous vein graft from aorta to RPDA]; Surgical aortic valve replacement [29 mm bioprosthesis RESILIA INSPIRIS] requiring extensive debridement into the annulus; Surgical mitral valve replacement using a chordal sparing method
[31 mm bioprosthesis MITRIS RESILIA] requiring extensive debridement of mitral annular calcification; Left atrial appendage exclusion [45 mm clip] by Dr. Olivares on 03/12/24
-
Date of Service: March 16, 2024
Pt c/o mild incisional pain, otherwise feels well
Objective Data
-
PT 17.7 Sec (11.4-14.6) H 03/15/24 04:50
INR 1.48 03/15/24 04:50
APTT 32.2 Sec (23.4-35.0) 03/12/24 13:07
Vital Signs
Vital Signs
Temp Pulse Resp BP Pulse Ox
97.8 F 68 18 133/65 98
03/15/24 19:32 03/15/24 22:30 03/15/24 19:32 03/15/24 22:00 03/16/24 00:00
CT Intake/Output/Weight
03/15/24 03/15/24 03/16/24
06:59 18:59 06:59
Intake Total 220 / 265 566.5 / 1166.8 600.3 / 1166.8
Output Total 460 / 1150 1470 / 1595 125 / 1595
Balance -240 / -885 -903.5 / -428.2 475.3 / -428.2
SaO2: 98 (RA)
Physical Exam
-
General: Awake, Oriented and AOx3
Cardiovascular: Regular rate & rhythm, No Murmurs and No Gallop
Respiratory: Decreased Breath Sounds (at bases, otherwise clear)
Sternum: Stable
Incision: Clean, Dry, Intact and Dressing Intact
Extremities: Other (+trace edema)
Data Reviewed
-
Lab Results: Results Reviewed
Medications: Active Meds Reviewed
Chest X-Ray: Report Reviewed and Image Reviewed
ECG: Report Reviewed and Image Reviewed
[2024-03-16] MEDS: ROXICODONE 5 MG PO ×5 (02:33→20:40)
[2024-03-16] MEDS: TYLENOL PO (04:59)
[2024-03-16 05:35] LABS: Hematocrit 24.2 % (39.0-52.0); Hemoglobin 8.6 g/dL (13.0-18.0); Mean Corp Hgb Conc. 35.5 g/dL (33.0-37.0); Mean Corpuscular Hgb 32.6 pg (27.0-31.0); Mean Corpuscular Volume 91.7 fL (80.0-94.0); Mean Platelet Volume 10.9 fL (7.4-10.4); Platelet Count 186 10^3/uL (130-400); Red Blood Cell Count 2.64 10^6/uL (4.70-6.10); Red Cell Dist. Width 12.9 % (11.5-14.5); White Blood Cell Count 11.4 10^3/uL (4.8-10.8)
[2024-03-16 05:44] LABS: INR 1.99; PT 22.5 Sec (11.4-14.6)
[2024-03-16 05:53] LABS: Blood Urea Nitrogen 17 mg/dl (9-20); Calcium 8.2 mg/dl (8.4-10.2); Carbon Dioxide 25 mmol/L (22-30); Chloride 99 mmol/L (98-107); Estimated Creatinine Clearance 124 ml/min; Glucose 105 mg/dl (70-99); Magnesium 2.3 mg/dl (1.6-2.3); Potassium 4.1 mmol/L (3.5-5.1); Sodium 136 mmol/L (135-145); eGFR > 60.00
[2024-03-16 08:30] LABS: ALT (SGPT) 25 U/L (0-50); AST (SGOT) 36 U/L (17-59); Albumin 3.1 g/dl (3.5-5.0); Alkaline Phosphatase 48 U/L (38-126); Direct Bilirubin 0.1 mg/dl (0.0-0.4); Total Bilirubin 0.7 mg/dl (0.2-1.3); Total Protein 5.4 g/dl (6.3-8.2)
[2024-03-16] MEDS: BACTROBAN 2% OINTMENT 1 APPLIC NASAL (09:30)
[2024-03-16] MEDS: LIDOCAINE 4% PATCH 1 PATCH TOPICAL (09:30)
--- NOTE | 2024-03-16 09:30 | PTCARENOTE ---
Assumed care of patient at 0700. Pt is awake, alert, and oriented. No complaints of pain at this time. Pt remains SR with first degree AV block, HR 70's. BP 151/72 MAP 93. AV wire in place set to VVI 50/10/2. Pulse oximetry 92% on room air. Pt
tolerated PO medications. Voiding without issue. Midsternal incision approximated and REGISTER OF WILLS. Right leg incision approximated and SCOUT. Right IJ cordis in place with KVO. Amio gtt remains at 0.5mg/min.
[2024-03-16] MEDS: NORVASC 10 MG PO (09:31)
[2024-03-16] MEDS: LASIX 40 MG IV ×2 (09:31→16:07)
[2024-03-16] MEDS: NEURONTIN 100 MG PO ×3 (09:31→23:10)
[2024-03-16] MEDS: PROTONIX 40 MG PO (09:31)
[2024-03-16] MEDS: LOW STRENGTH ASPIRIN 81 MG PO (09:31)
[2024-03-16] MEDS: COREG 25 MG PO ×2 (09:31→19:31)
[2024-03-16] MEDS: SENOKOT-S 1 TABLET PO ×2 (09:31→19:31)
[2024-03-16] MEDS: PLAVIX 75 MG PO (09:31)
[2024-03-16] MEDS: NSS IV (09:32)
[2024-03-16] MEDS: KCL 20 MEQ PO ×2 (09:32→19:31)
[2024-03-16] MEDS: CORDARONE 103 MG IV (11:14)
[2024-03-16] MEDS: LOPRESSOR 5 MG IV (11:14)
--- NOTE | 2024-03-16 11:19 | CM ---
Reviewed chart. Met with Mr. Olvera to review discharge plans. He states he is feeling okay. We reviewed a home visit by the Transitional Care Nurse. He is agreeable to a home visit. Prior to admission he resides with his spouse in a one story
home without any steps to enter. Prior to admission he was independent with ambulation and adls. He does not have any DME in the home. He has a prescription plan and uses [facility]. His spouse and other family members will be available to
assist in his care if needed. Medical work-up in progress. The discharge plan is to return home with his spouse and a home visit by the Transitional Care Nurse when medically stable.
--- NOTE | 2024-03-16 12:30 | PTCARENOTE ---
0950 Afib with HR 130's-140's. BP 161/93 MAP 115. 5mg IV Lopressor given. Amio bolus administered. AV wire in place set to VVI rate of 50, pt with 3 paced beats prior to converting to SR at 1140. Epicardial wire rate turned down to [address] EXPORT PACKER,
Heather. Pt now remains SR with HR 60's. Currently BP 128/68 MAP 84. Ambulated with cardiac rehab, tolerated well.
--- NOTE | 2024-03-16 13:29 | W.PN.CARDCBS ---
Addendum entered and electronically signed by Devendra Rogers MD 03/16/24 13:49:
I saw and examined the patient.
The CRITICAL SYSTEMS TECHNICIAN or PA's note was reviewed and I agree with the note.
Comment: General: Well developed, well nourished in NAD.
Neck: Supple, no JVD, HJR, carotids +2 B/L, no bruits bilaterally.
Heart: Non displaced PMI, RRR, no murmurs, No S3, S4, no rubs.
Lungs: Scattered rhonchi
Sternal dressings noted
Extremities: No clubbing, cyanosis or edema bilaterally.
Neuro: Grossly nonfocal, awake, alert and oriented x3.
Stable cardiology status. Remains in sinus rhythm on amiodarone. 15 pound weight gain and diuresis is being initiated. Discussed with CT surgery PA.
Original Note:
Today's Communication / Plan
-
diuresis
follow on tele, back in SR at present. po amiodarone
on asa, plavix, coumadin
post op care
Impression / Plan
-
PCP: Carmen Mendez
Wool Cleaner: Dr. Wilson
Impression:
s/p bioprosthetic AVR, bioprosthetic MVR, CABG x1, and MAYCOL clip 03/12/2024
Bicuspid aortic valve w/ severe
s/p 29 mm bioprosthetic AVR 03/12/2024
Moderate-severe mitral stenosis
s/p 31 mm bioprosthetic MVR 03/12/2024
CAD
CABG x 1 (reverse SVG from aorta to RPDA) 03/12/2024
Post-op atrial fibrillation w/ RVR
Prolonged QT
Anemia
Hypertension
Hyperlipidemia
h/o statin intolerance, on Repatha
h/o ETOH abuse
former tobacco abuse
HANNAH 02/18/2024: EF 65-70%, calcified mitral valve leaflets w/ restricted motion, mod mitral stenosis, mild MR, heavily calcified bicuspid aortic valve w/ fusion of RCC and LCC, severe with mild to mod AI, dilated ascending aorta at 4.5cm
HANNAH 03/12/2024: (post-op) EF 60%, well seated AVR and MVR, no paravalvular leaks, MAYCOL appears clipped with a small residual lumen, no color doppler seen distal to the clip.
Plan:
-s/p AVR, MVR, CABG x1, MAYCOL clip w/ Dr. Olivares 03/12/2024.
-looks well
-he had ~ 8 hours of afib 03/15 s/p conversion to SR on IV amiodarone. had another episode of ~1.5 hours of afib this morning. with both episodes he temporarily required pacing immediately after converting for short period. pacer now decreased to
30. patient reports essentially asymptomatic of afib. has been maintaining SR thus far today. now off IV amiodarone, continue po. follow QTc.
-continue coumadin. INR 1.99. also on asa, plavix.
-hgb 8.6. s/p 1 U PRBCs 03/13
-continue diuresis with IV lasix. patient reports good response. Cr stable at 0.7.
-with small R apical PTX s/p CT removal 03/14. for repeat CXR in AM.
-continue coreg, norvasc
-h/o statin intolerance, on PCSK9 inhibitor as OP.
-continue OOB/IS, cardiac rehab
-d/w nursing
Progress Note - Wool Cleaner
Subjective
Date of Service: March 16, 2024
reports some post op pain. denies palpitations, lightheadedness with afib.
Objective
Labs:
03/16/24 05:13
03/16/24 05:13
Labs
Hgb 8.6 g/dL (13.0-18.0) L 03/16/24 05:13
Hct 24.2 % (39.0-52.0) L 03/16/24 05:13
Plt Count 186 10^3/uL (130-400) D 03/16/24 05:13
PT 22.5 Sec (11.4-14.6) H 03/16/24 05:13
INR 1.99 03/16/24 05:13
APTT 32.2 Sec (23.4-35.0) 03/12/24 13:07
Sodium 136 mmol/L (135-145) 03/16/24 05:13
Potassium 4.1 mmol/L (3.5-5.1) 03/16/24 05:13
BUN 17 mg/dl (-) 03/16/24 05:13
Creatinine 0.7 mg/dL (0.7-1.3) 03/16/24 05:13
Glucose 105 mg/dl (70-99) H 03/16/24 05:13
Vital Signs and I&O:
Vital Signs
Temp Pulse Resp BP Pulse Ox
98.6 F 64 18 128/68 96
03/16/24 12:24 03/16/24 12:30 03/16/24 12:24 03/16/24 12:24 03/16/24 12:24
Vital Signs
Temp Pulse Resp BP Pulse Ox
98.6 F 64 18 128/68 96
03/16/24 12:24 03/16/24 12:30 03/16/24 12:24 03/16/24 12:24 03/16/24 12:24
Intake & Output
03/14/24 03/15/24 03/16/24 03/17/24
07:59 07:59 07:59 07:59
Intake Total 2053.2 365 / 648.3 1113.5 / 1140.2 200.1 / 200.1
Output Total 820 / 960 1270 / 1370 1800 / 1900 2074 / 2074
Balance 1189.2 / 1094.2 -905 / -721.7 -686.5 / -759.8 -1874.9 / -1874.9
Physical Exam
Physical Exam
GEN: No distress, awake, alert, oriented x3. sitting in chair
HEENT: supple, anicteric, mmm, eomi
LUNGS: CTA anterolaterally B/L, no wheezes
CV: Reg, S1/S2, no murmur
ABD: soft, BS+, NT/ND
EXT: No cyanosis, clubbing. trace edema of B/L LE
NEURO: Gross non-focal
SKIN: Warm, pink, dry. No rash. Sternotomy incision c/d/i.
[2024-03-16] MEDS: TYLENOL 1000 MG PO ×2 (14:04→23:10)
[2024-03-16] MEDS: PACERONE 200 MG PO ×2 (16:07→23:10)
[2024-03-16] MEDS: MYLICON 80 MG PO ×2 (16:11→23:10)
--- NOTE | 2024-03-16 16:16 | PTCARENOTE ---
VS obtained, stable. Patient resting comfortably oob, visitors at bedside.
[2024-03-16] MEDS: COUMADIN 2.5 MG PO (17:25)
[2024-03-16] MEDS: FLEXERIL 5 MG PO (19:32)
--- NOTE | 2024-03-16 20:00 | PTCARENOTE ---
Assumed care of patient at 1900. Patient oob in chair at time of assessment. Patient is AOx4, follows commands appropriately, moves all extremites. Lung sounds are diminished at the bases, saO2 94% on RA. Heart sounds have a RR&R, with normal
palpable pulses, and +1 pedal edema. Patient has A+V wires with VVI settings. Patient is in SR with first deg AV block. Patient has active BS and is voiding utilizing urinal. There is a R IJ cordis receiving KVO and R FA PIV. VSS.
[2024-03-17] VITALS (12 sets, daily range): BP systolic 95–157; BP diastolic 45–96; PULSE 70; O2SAT 95–100; BMI 25.1
--- NOTE | 2024-03-17 | PTCARENOTE ---
Patient reassessed. VSS. Remains SR with first deg AV block on monitor. Oxy 5 given for pain.
[2024-03-17] MEDS: ROXICODONE 5 MG PO ×4 (04:15→21:00)
[2024-03-17] MEDS: LOPRESSOR 5 MG IV (04:46)
--- NOTE | 2024-03-17 04:51 | W.PN.CT ---
Today's Communication / Plan
-
-pod #5
-in nsr 70s most of the night. Went into a-fib 120s after got out of bed to get weighed at 4:30am- gave 5 iv Lopressor and Amio bolus- converted to NSR @ 4:08 am without significant conversion pause
-continue po Amio 200 tid and Coreg 25 bid
-follow Qt (long Qt postop)- 436/483 ms today
-Coumadin started on 03/14 for a-fib/MVR (got 2.5, 5, 2.5 mg). INR today 2.46
-K 3.6- gave 40 KCL po this am
-CBC pending
-Wt is up 15 lbs from preop, got 40mg IV Lasix BID and KCL on 03/16- UO 2925. Cont. diuresis, fluid restriction
-follow small right apical ptx following chest tube removal 03/14. Follow 2v-CXR 03/17
-Cont. current meds (ASA, Plavix, Coumadin, Coreg 25 bid, Amio 200 tid, Norvasc 10 qd, Lasix 40 iv bid, KCL 20 bid, Neurontin 100 tid, Protonix). Put Plavix on hold this am
-Statin intolerance - on PCSK9 injection (Repatha) at home
-encourage IS (upto 1999 so far), ambulate
-possible d/c soon
-will need pw cut before d/c
Assessment / Plan
-
- Severe aortic valve stenosis, bypassed morphology, moderately severe mitral valve stenosis and insufficiency, single-vessel coronary disease- s/p CABG x 1 [reverse saphenous vein graft from aorta to RPDA]; Surgical aortic valve replacement [29 mm
bioprosthesis RESILIA INSPIRIS] requiring extensive debridement into the annulus; Surgical mitral valve replacement using a chordal sparing method [31 mm bioprosthesis MITRIS RESILIA] requiring extensive debridement of mitral annular calcification;
Left atrial appendage exclusion [45 mm clip] by Dr. Olivares on 03/12/24, pod #5
- Intraop HANNAH: LVEF 65% preop with significant LVH, no regional wma following surgery. After coming off of cardiopulmonary bypass, there was no paravalvular leak that was seen on either the mitral or aortic valve prostheses. Both bioprosthesis had
normal excursion of the leaflets, the mean gradient across the mitral valve was essentially 0 to 1 mmHg and aortic valve was 3 mmHg. There was a slight LVOT gradient of approximately 10 mmHg and again severe left ventricular hypertrophy. The left
atrial appendage was free of any thrombus or debris preop and found to be totally occlusive postop with only a small residual stump that was less than 8 mm.
- Bicuspid aortic valve morphology, type II with severe stenosis
- Moderately severe mitral valve stenosis with severe mitral annular calcification, mild degree of insufficiency
- Hypertension
- History of alcohol abuse
- Former smoker, quit in 2000
- Hyperlipidemia- No statin d/t intolerance, on PCSK9 (Repatha) at home
- Single-vessel coronary artery disease
- Mild aortic ectasia
- Moderately severe left ventricular hypertrophy
- Urinary urgency
- Acute postop blood loss anemia - stable, s/p 1 pRBC on 03/13
- Acute postop coagulopathy - s/p 2 unit platelets and 2 FFPs
- Acute postop atelectasis
- Acute postop hypovolemia with subsequent hypervolemia
- Acute postop 10 beat NSVT - tx with Amio bolus and drip
- Acute postop prolonged Qt
- Acute postop a-fib with RVR, conversion pause
- Acute postop stable right apical ptx post chest tube removal
Discussed patient care with: Nursing and Care Team
Subjective
Procedure
CABG x 1 [reverse saphenous vein graft from aorta to RPDA]; Surgical aortic valve replacement [29 mm bioprosthesis RESILIA INSPIRIS] requiring extensive debridement into the annulus; Surgical mitral valve replacement using a chordal sparing method
[31 mm bioprosthesis MITRIS RESILIA] requiring extensive debridement of mitral annular calcification; Left atrial appendage exclusion [45 mm clip] by Dr. Olivares on 03/12/24
-
Date of Service: March 17, 2024
Objective Data
-
PT 22.5 Sec (11.4-14.6) H 03/16/24 05:13
INR 1.99 03/16/24 05:13
APTT 32.2 Sec (23.4-35.0) 03/12/24 13:07
Vital Signs
Vital Signs
Temp Pulse Resp BP Pulse Ox
98.0 F 68 18 141/66 94
03/16/24 19:00 03/16/24 20:30 03/16/24 19:00 03/16/24 19:32 03/16/24 20:00
CT Intake/Output/Weight
03/16/24 03/16/24 03/17/24
06:59 18:59 06:59
Intake Total 620.3 / 1213.5 536.8 / 536.8
Output Total 450 / 1920 2925 / 2925
Balance 170.3 / -706.5 -2388.2 / -2388.2
SaO2: 94
Physical Exam
-
General: Awake and AOx3
Cardiovascular: Regular rate & rhythm, No Murmurs and No Rub
Respiratory: Clear and Decreased Breath Sounds
Sternum: Stable
Incision: Clean, Dry and Intact
Extremities: Other (trace edema b/l)
Abdomen: soft, nontender, nondistended, + bowel sounds, no nausea
Data Reviewed
-
Lab Results: Results Reviewed
Medications: Active Meds Reviewed
Chest X-Ray: Report Reviewed and Image Reviewed
ECG: Report Reviewed and Image Reviewed
--- NOTE | 2024-03-17 04:54 | PTCARENOTE ---
While standing patient up to be weighed, patient converted to afib with tachycardia. Patient asymptomatic. CT PA aware, given IV Lopressor awaiting amiodarone bolus. Will continue to monitor.
[2024-03-17 04:58] LABS: INR 2.46; PT 26.6 Sec (11.4-14.6)
[2024-03-17] MEDS: CORDARONE 103 MG IV (04:59)
[2024-03-17 05:15] LABS: Blood Urea Nitrogen 17 mg/dl (9-20); Calcium 8.1 mg/dl (8.4-10.2); Carbon Dioxide 26 mmol/L (22-30); Chloride 99 mmol/L (98-107); Estimated Creatinine Clearance > 125 ml/min; Glucose 95 mg/dl (70-99); Magnesium 2.2 mg/dl (1.6-2.3); Potassium 3.6 mmol/L (3.5-5.1); Sodium 136 mmol/L (135-145); eGFR > 60.00
--- NOTE | 2024-03-17 05:30 | PTCARENOTE ---
Following Lopressor and amio bolus patient converted back to SR at 0508 HR in 60s without any significant pause. Patient stable.
[2024-03-17] MEDS: KCL 40 MEQ PO (05:41)
[2024-03-17] MEDS: TYLENOL 1000 MG PO ×3 (06:23→20:59)
[2024-03-17 06:38] LABS: Hemoglobin 8.5 g/dL (13.0-18.0); Mean Corp Hgb Conc. 35.4 g/dL (33.0-37.0); Mean Corpuscular Hgb 31.3 pg (27.0-31.0); Mean Corpuscular Volume 88.2 fL (80.0-94.0); Mean Platelet Volume 10.4 fL (7.4-10.4); Platelet Count 204 10^3/uL (130-400); Red Blood Cell Count 2.72 10^6/uL (4.70-6.10); White Blood Cell Count 8.7 10^3/uL (4.8-10.8)
[2024-03-17] MEDS: PROTONIX 40 MG PO (08:54)
[2024-03-17] MEDS: SENOKOT-S 1 TABLET PO ×2 (08:54→21:00)
[2024-03-17] MEDS: LASIX 40 MG IV ×2 (08:54→17:03)
[2024-03-17] MEDS: COREG 25 MG PO (08:54)
[2024-03-17] MEDS: NORVASC 10 MG PO (08:54)
[2024-03-17] MEDS: LIDOCAINE 4% PATCH TOPICAL (08:55)
[2024-03-17] MEDS: LOW STRENGTH ASPIRIN 81 MG PO (08:55)
[2024-03-17] MEDS: NEURONTIN 100 MG PO ×3 (08:55→21:01)
[2024-03-17] MEDS: PACERONE 200 MG PO ×3 (08:55→20:59)
--- NOTE | 2024-03-17 08:55 | PTCARENOTE ---
Assumed care of patient at 0700. Pt is awake, alert, and oriented. Pt currently SR with HR 70's. BP 147/75 MAP 92. AV wire remains in place set to VVI . Pulse oximetry 94% on room air. Pt tolerating PO diet. Voiding without issue. Midsternal
incision approximated and SCOUT. Right leg incision approximated and SCOUT. Right IJ cordis in place with KVO. Pt assisted OOB to chair.
--- NOTE | 2024-03-17 11:47 | CM ---
Reviewed chart. Asked to check co-pay for Eliquis 5 mg po bid. Telephone call to his insurance to check on his co-pay. His co-pay for Eliquis would be $198.57 a month. He has commercial insurance so he can use the $10.00 co-pay card. Placed the one
month free and the $10.00 co-pay card in his red discharge folder. He states he can afford the Eliquis with the $10.00 coupon. Telephone call to [facility] to check if they have Eliquis 5 mg po bid in stock. [facility] has it in stock. He
states he is feeling better and he maybe able to home soon. He ambulated in the hallway today. We reviewed a home visit by the Transitional Care Nurse. He is agreeable to a home visit. Prior to admission he resides with his spouse in a one story
home with three steps to enter. Prior to admission he was independent with ambulation and adls. He does not have any DME in the home. He has a prescription plan and uses [facility]. His spouse and other family members will be available to
assist in his care if needed. Medical work-up in progress. The discharge plan is to return home with his spouse and the home visit by the Transitional Care Nurse when medically stable.
--- NOTE | 2024-03-17 11:50 | PTCARENOTE ---
Pt with no changes in assessment.2 view x-ray competed. Pt worked with cardiac rehab, tolerated well. Remains SR with HR 70's.
[2024-03-17] MEDS: NSS IV (13:01)
--- NOTE | 2024-03-17 13:06 | W.PN.CARDCBS ---
Addendum entered and electronically signed by Feliciano Suresh DO 03/17/24 14:50:
I saw and examined the patient.
The Animal Feeder's note was reviewed and I agree with the note.
Comment:
Plan:
Cont post op CT surgical care
Recurrent post op AFib, CT planning to transition to Eliquis from coumadin. Plavix stopped
Remains sinus
Cont ASA
Cont IV lasix diuresis. Cr stable at 0.6
Statin intolerance, taking PCSK9 inhibitor as outpt.
Discussed with nursing and with family at bedside.
Original Note:
Today's Communication / Plan
-
continue post op care
follow rhythm
plan to transition coumadin to eliquis per CT surg
diuresis
Impression / Plan
-
PCP: Carmen Mendez
Bull Driver: Dr. Wilson
Impression:
s/p bioprosthetic AVR, bioprosthetic MVR, CABG x1, and MAYCOL clip 03/12/2024
Bicuspid aortic valve w/ severe
s/p 29 mm bioprosthetic AVR 03/12/2024
Moderate-severe mitral stenosis
s/p 31 mm bioprosthetic MVR 03/12/2024
CAD
CABG x 1 (reverse SVG from aorta to RPDA) 03/12/2024
Post-op atrial fibrillation w/ RVR
Prolonged QT
Anemia
Hypertension
Hyperlipidemia
h/o statin intolerance, on Repatha
h/o ETOH abuse
former tobacco abuse
HANNAH 02/18/2024: EF 65-70%, calcified mitral valve leaflets w/ restricted motion, mod mitral stenosis, mild MR, heavily calcified bicuspid aortic valve w/ fusion of RCC and LCC, severe with mild to mod AI, dilated ascending aorta at 4.5cm
HANNAH 03/12/2024: (post-op) EF 60%, well seated AVR and MVR, no paravalvular leaks, MAYCOL appears clipped with a small residual lumen, no color doppler seen distal to the clip.
Plan:
-s/p AVR, MVR, CABG x1, MAYCOL clip w/ Dr. Olivares 03/12/2024.
-He had approximately 8 hours of A-fib 03/15. Then approximately 1.5 hours of A-fib late morning 03/16. He had approximately an hour of A-fib early this morning. Currently in sinus rhythm. He remains essentially asymptomatic. Continue p.o.
amiodarone
-CT surgery planning to transition patient from Coumadin to Eliquis 5mg BID when INR less than 2. INR 2.46 today. Plavix has been stopped. Continue aspirin
-Hemoglobin 8.5. s/p 1 U PRBCs 03/13
-continue diuresis with IV lasix. Weight trending down. Cr stable at 0.6.
-with stable R apical PTX by CXR 03/17.
-continue coreg, norvasc
-h/o statin intolerance, on PCSK9 inhibitor as OP.
-continue OOB/IS, cardiac rehab
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
Progress Note - Bull Driver
Subjective
Date of Service: March 17, 2024
resting comfortably
Objective
Labs:
03/17/24 06:29
03/17/24 04:18
Labs
Hgb 8.5 g/dL (13.0-18.0) L 03/17/24 06:29
Hct 24.0 % (39.0-52.0) L 03/17/24 06:29
Plt Count 204 10^3/uL (130-400) 03/17/24 06:29
PT 26.6 Sec (11.4-14.6) H 03/17/24 04:18
INR 2.46 03/17/24 04:18
APTT 32.2 Sec (23.4-35.0) 03/12/24 13:07
Sodium 136 mmol/L (135-145) 03/17/24 04:18
Potassium 3.6 mmol/L (3.5-5.1) 03/17/24 04:18
BUN 17 mg/dl (9-20) 03/17/24 04:18
Creatinine 0.6 mg/dL (0.7-1.3) L 03/17/24 04:18
Glucose 95 mg/dl (70-99) 03/17/24 04:18
Vital Signs and I&O:
Vital Signs
Temp Pulse Resp BP Pulse Ox
99.0 F 73 18 147/75 94
03/17/24 08:54 03/17/24 09:00 03/17/24 08:54 03/17/24 08:54 03/17/24 08:54
Vital Signs
Temp Pulse Resp BP Pulse Ox
99.0 F 73 18 147/75 94
03/17/24 08:54 03/17/24 09:00 03/17/24 08:54 03/17/24 08:54 03/17/24 08:54
Intake & Output
03/15/24 03/16/24 03/17/24 03/18/24
07:59 07:59 07:59 07:59
Intake Total 365 / 648.3 1113.5 / 1140.2 510.1 / 510.1 60 / 60
Output Total 1270 / 1370 1800 / 1900 3500 / 3500 375 / 375
Balance -905 / -721.7 -686.5 / -759.8 -2989.9 / -2989.9 -315 / -315
Physical Exam
Physical Exam
GEN: No distress, resting comfortably in chair
HEENT: supple, mmm
LUNGS: no audible wheezes, lying flat
CV: Reg rhythm on tele
EXT: No clubbing, cyanosis. trace edema of B/L LE
NEURO: Gross non-focal
SKIN: Warm, pink, dry. No rash
--- NOTE | 2024-03-17 17:15 | PTCARENOTE ---
Pt with no changes in assessment. Pt remains SR HR 70's. BP 143/72 MAP 92. Pulse oximetry 94% on room air.
[2024-03-17] MEDS: FLEXERIL 5 MG PO (17:53)
--- NOTE | 2024-03-17 18:30 | PTCARENOTE ---
Pt into Afib at [id number]. HR 110-120's, BP 154/96 MAP 111, pulse oximetry 96%. Asymptomatic. Pt converted to SR with no intervention. CT TRAIN OPERATIONS SUPERVISOR aware. Confirmed order to d/c cordis and insulate wires.
[2024-03-17] MEDS: COREG 50 MG PO (20:59)
[2024-03-17] MEDS: KCL 20 MEQ PO (21:01)
--- NOTE | 2024-03-17 23:05 | PTCARENOTE ---
Pt. received at change of shift from CVICU. SR with first degree AVB and prolonged QT on tele, HR 60s-70s. Sternal incision approximated and SCOUT. Epicardial pacing wires present and insulated. Pt with 5/10 pain at incision site, medication
administered per orders, see MAR. Pt. OOB with X1 assist. Pt compliant with incentive spirometry. Can make needs known. Call salazar within reach.
[2024-03-18] MEDS: FLEXERIL 5 MG PO (02:12)
[2024-03-18 02:55] VITALS: BP 131/81
[2024-03-18] MEDS: COREG 50 MG PO (03:02)
[2024-03-18 03:46] LABS: INR 1.94; PT 22.4 Sec (11.4-14.6)
[2024-03-18 03:59] LABS: Blood Urea Nitrogen 18 mg/dl (9-20); Carbon Dioxide 28 mmol/L (22-30); Chloride 99 mmol/L (98-107); Estimated Creatinine Clearance 124 ml/min; Glucose 108 mg/dl (70-99); Potassium 3.5 mmol/L (3.5-5.1); Sodium 139 mmol/L (135-145); eGFR > 60.00
--- NOTE | 2024-03-18 04:45 | PTCARENOTE ---
At ~0250, pt had a few minute burst of Afib with HR as high as 120. Pt resting in bed at the time and is asymptomatic. BP 131/81. Converted back to SR without intervention. Per Seth MUKHERJEE, 0800 dose of Coreg administered early to prevent
pt from going back into afib. Labs obtained and sent as per orders.
--- NOTE | 2024-03-18 05:44 | W.PN.CT ---
Today's Communication / Plan
-
-pod #6
-had 2 min episode of a-fib at 2: 50 am, asymptomatic, converted spontaneously, no conversion pauses - gave Coreg 50mg earlier
-INR today 1.94. Transitioning from Coumadin to Eliquis- ? start today
-K 3.5- gave 40 kcl (continue 20 bid KCL with bid Lasix)
-Cr stable 0.7
-wt is up 13 lbs from preop - diuresing well with 40 iv bid Lasix (UO 725/2700 in 12/24 hrs)
-will need pw cut before discharge
Assessment / Plan
-
- Severe aortic valve stenosis, bypassed morphology, moderately severe mitral valve stenosis and insufficiency, single-vessel coronary disease- s/p CABG x 1 [reverse saphenous vein graft from aorta to RPDA]; Surgical aortic valve replacement [29 mm
bioprosthesis RESILIA INSPIRIS] requiring extensive debridement into the annulus; Surgical mitral valve replacement using a chordal sparing method [31 mm bioprosthesis MITRIS RESILIA] requiring extensive debridement of mitral annular calcification;
Left atrial appendage exclusion [45 mm clip] by Dr. Olivares on 03/12/24, pod #6
- Intraop HANNAH: LVEF 65% preop with significant LVH, no regional wma following surgery. After coming off of cardiopulmonary bypass, there was no paravalvular leak that was seen on either the mitral or aortic valve prostheses. Both bioprosthesis had
normal excursion of the leaflets, the mean gradient across the mitral valve was essentially 0 to 1 mmHg and aortic valve was 3 mmHg. There was a slight LVOT gradient of approximately 10 mmHg and again severe left ventricular hypertrophy. The left
atrial appendage was free of any thrombus or debris preop and found to be totally occlusive postop with only a small residual stump that was less than 8 mm.
- Bicuspid aortic valve morphology, type II with severe stenosis
- Moderately severe mitral valve stenosis with severe mitral annular calcification, mild degree of insufficiency
- Hypertension
- History of alcohol abuse
- Former smoker, quit in 2000
- Hyperlipidemia- No statin d/t intolerance, on PCSK9 (Repatha) at home
- Single-vessel coronary artery disease
- Mild aortic ectasia
- Moderately severe left ventricular hypertrophy
- Urinary urgency
- Acute postop blood loss anemia - stable, s/p 1 pRBC on 03/13
- Acute postop coagulopathy - s/p 2 unit platelets and 2 FFPs
- Acute postop atelectasis
- Acute postop hypovolemia with subsequent hypervolemia
- Acute postop 10 beat NSVT - tx with Amio bolus and drip
- Acute postop prolonged Qt
- Acute postop paroxysmal a-fib with RVR, conversion pause
- Acute postop stable right apical ptx post chest tube removal
Discussed patient care with: Nursing and Care Team
Subjective
Procedure
CABG x 1 [reverse saphenous vein graft from aorta to RPDA]; Surgical aortic valve replacement [29 mm bioprosthesis RESILIA INSPIRIS] requiring extensive debridement into the annulus; Surgical mitral valve replacement using a chordal sparing method
[31 mm bioprosthesis MITRIS RESILIA] requiring extensive debridement of mitral annular calcification; Left atrial appendage exclusion [45 mm clip] by Dr. Olivares on 03/12/24
-
Date of Service: March 18, 2024
Objective Data
-
Lab Results
03/17/24 06:29
03/18/24 03:10
PT 22.4 Sec (11.4-14.6) H 03/18/24 03:10
INR 1.94 03/18/24 03:10
APTT 32.2 Sec (23.4-35.0) 03/12/24 13:07
Vital Signs
Vital Signs
Temp Pulse Resp BP Pulse Ox
98.3 F 69 18 131/81 95
03/18/24 03:12 03/18/24 03:02 03/18/24 03:12 03/18/24 03:02 03/18/24 03:12
CT Intake/Output/Weight
03/17/24 03/17/24 03/18/24
06:59 18:59 06:59
Intake Total 100 / 100
Output Total 575 / 3500 1975 / 2700 725 / 2700
Balance -575 / -2963.2 -1875 / -2600 -725 / -2600
SaO2: 95
Physical Exam
-
General: Awake and AOx3
Cardiovascular: Regular rate & rhythm, No Murmurs and No Rub
Respiratory: Clear and Decreased Breath Sounds
Sternum: Stable
Incision: Clean, Dry and Intact
Abdomen: soft, nontender, nondistended, + bowel sounds, no nausea
Extremities: Other (trace edema b/l)
Data Reviewed
-
Lab Results: Results Reviewed
Medications: Active Meds Reviewed
Chest X-Ray: Report Reviewed and Image Reviewed
ECG: Report Reviewed and Image Reviewed
[2024-03-18] MEDS: TYLENOL 1000 MG PO ×2 (06:38→14:21)
[2024-03-18] MEDS: KCL 40 MEQ PO (06:38)
[2024-03-18] MEDS: ROXICODONE 5 MG PO (06:46)
[2024-03-18 07:20] VITALS: BP 104/62
[2024-03-18] MEDS: ELIQUIS 5 MG PO (08:42)
[2024-03-18] MEDS: KCL 20 MEQ PO (08:42)
[2024-03-18] MEDS: PROTONIX 40 MG PO (08:43)
[2024-03-18] MEDS: LOW STRENGTH ASPIRIN 81 MG PO (08:43)
[2024-03-18] MEDS: PACERONE 200 MG PO (08:43)
[2024-03-18] MEDS: LIDOCAINE 4% PATCH 1 PATCH TOPICAL (08:44)
[2024-03-18] MEDS: NEURONTIN 100 MG PO (08:44)
[2024-03-18] MEDS: SENOKOT-S 1 TABLET PO (08:44)
[2024-03-18 08:56] VITALS: BMI 24.8
[2024-03-18] MEDS: LASIX 40 MG IV (09:01)
--- NOTE | 2024-03-18 09:48 | W.DCSUMMARY ---
Discharge Summary
Discharge Data
Date of Admission: 03/12/24
Date of Discharge: 03/18/24
-
Pending Results: No
Hospital Course
Primary care physician: Dr. Carmen Mendez
Outpatient panel assembler: Dr. Vashti Wilson
Inpatient consultants: ESTUARDO
Procedures:
1. 03/12/24 Aortic valve replacement #29 inspiris bioprosthesis, Mitral valve replacement #31mm mitris bioprosthesis, CABG x1 (SVG-PDA), exclusion of left atrial appendage with #45 clip, extensive debridement of MAC
Primary Diagnosis:
1. severe aortic stenosis
2. severe mitral stenosis
3. coronary artery disease
Secondary Diagnoses:
1. hypertension
2. hyperlipidemia
3. history of alcoholism
4. former tobacco abuse, quit 2000
5. urinary urgency
6. postoperative atrial fibrillation, started on eliquis
7. postop small right apical pneumothorax, stable
8. postop acute blood loss anemia, s/p transfusion of 1 PRBC on 03/13
9. postop coagulopathy, s/p 2 platelet & 2 FFP transfusions on 03/12, resolved
HPI: Patient is a 63y/oM with c/o progressive decreasing exercise tolerance who saw cardiology as an outpatient for new murmur workup which revealed severe , severe MS and preserved EF on TTE. Subsequent LHC demonstrated single vessel CAD. He was
referred to CT surgery, and after all preoperative workup has been completed he was deemed a suitable candidate for AVR/MVR/CABG.
Hospital course: Pt was electively admitted on 03/12/24 where he underwent AVR/MVR/CAB x1/ELAA by Dr. Colton Olivares without any perioperative complications. He was transferred to CVICU per protocol on low dose levophed gtt. 2 platelets & 2 FFP were
transfused for postop coagulopathy which resolved. He was extubated that afternoon at approx 16:51. he remained hemodynamically stable overnight, on postop Day #1 he was on cardene & nitro gtts for hypertension. Lopressor was started in AM, but pt
became more bradycardic with intermittent junctional rhythm--sinus rhythm recovered in afternoon and beta almita changed to coreg. He was able to be weaned off anithypertensive gtts and was delined. He was given 1 PRBC for hgb 7.9, johnson removed
without incident. on POD#2 he remains sinus rhythm without recurrence of junctional, he is persistently hypertensive--coreg titrated up and norvasc added. gentle diuresis intitiated with 20mg IV lasix x1. Chest tubes were discontinued, TPW
insulated. Coumadin initiated for mitral valve replacement. on POD#3 he had afib with RVR overnight, amiodarone IV bolus & gtt started with conversion in and out of sinus. Coumadin given 2.5mg, coreg titrated up & diuresis increased to lasix 40mg IV
BID for volume overload. on Post op day #4 he had one more episode of afib with RVR overnight, IV amio bolus was given. cordis was discontinued, and coumadin stopped with plans for initiation of eliquis when INR <2. on POD #5 pt continues to improve
with ambulation, but having more episodes of afib. on POD#6 he remained sinus overnight with 2min period of afib. INR down to 1.9, eliquis 5mg BID initiated. Pt had a couple more self limited asymptomatic episodes of afib. vitals otherwise remain
stable. Pt ambulated and worked with cardiac rehab and was discharged to home with close follow up with the transitional care nurse from .
Home medication changes: Stop lopressor, changed to coreg for better BP control. losartan added for HTN. New rx lasix/Kcl BID x3 days, then once daily for a total of a week for postop volume overload. Pt to hold his home potassium supplement until
Kcl/lasix complete. New Rx eliquis for postop afib. New rx amiodarone for postop afib 200mg BID x 2 weeks, then once daily until otherwise instructed by cardiology. New rx oxycodone prn post surgical pain.
Discharge Plan
-
Patient Disposition: Home (Routine Discharge)
Discharge Diagnosis/Procedures: aortic stenosis, mitral stenosis, coronary artery disease s/p AVR, MVR, CABG x1 (SVG-PDA), exclusion of MAYCOL
Condition: Good
Diet: Low Fat, Low Cholesterol and 2 Gram Sodium
Activity: No strenuous activity
Driving Restrictions: Not until seen by your Dr
Bathing Restrictions: OK to Shower
Blood Work: BMP in 1 week
Other Services: Cardiac Rehab
Specialty Instructions: Weigh Daily- Call MD for wt gain/loss 3 lbs overnight/5 lbs in 1 week
Activity Restrictions/Additional Instructions:
ACTIVITY:
-No strenuous activity: no heavy lifting, pushing, pulling anything over 15 pounds for one month
-continue to use stairs as tolerated
DRIVING RESTRICTIONS:
-No driving for one month or until approved by your surgeon
WOUND CARE:
-Shower daily. Use soap & water.
-No lotions, creams or powders on incision area.
DIET:
-continue a low fat/low cholesterol diet.
-IF you are diabetic, continue carb controlled diet.
CARDIAC REHAB:
-Please make appointment to start in 5-6 weeks with your local hospital program. (See Cardiac Rehabilitation Discharge Booklet).
SPECIALTY INSTRUCTIONS:
-Weigh yourself daily. Call your physician for any weight gain/loss of 3 lbs overnight or 5 lbs in one week.
-REPORT any clicking noise or uneven appearance of your sternum to your surgeon immediately.
-If you smoke, you are instructed to quit. The [place] smoking hotline phone number is [phone]
Referrals:
CT Transitional Care Nurse [Outside] - in one to two days
(
The Cardiothoracic Transitional Care Nurse will call you to set up a visit in 1-2 days.)
[facility]. Cardiac Rehab [Outside] - 04/19/24 9:30 am
(Cardiac Rehab Orientation appointment and� First Exercise appointment is on 04/19/24
The Cardiac Rehab gym is located on the first floor of the [facility].)
Carmen Mendez PA [Family Provider] - in four to six weeks (Please make an apoiontment in four to six weeks.)
Prudence Spicer PA-C [Specified Professional Personl] - 04/28/24 10:40 am
Colton Olivares MD [Active] - 04/15/24 2:45 pm
Prescriptions:
New
Eliquis 5 mg Tablet
5 mg PO BID Qty: 60 1RF
amiodarone 200 mg Tablet
200 mg PO BID Qty: 60 0RF
Rx Instructions:
take twice daily for 2 weeks (until 04/01), then once daily until otherwise instructed
carvedilol 25 mg Tablet
25 mg PO BID Qty: 60 1RF
acetaminophen 325 mg Tablet
650 mg PO Q6HPRN PRN (Reason: mild pain,headache,temp >101F ) Qty: 0 0RF
potassium chloride 20 mEq Tablet,Er Particles/Crystals
20 meq PO BID Qty: 10 0RF
Rx Instructions:
take with lasix twice daily x3 more days, then once daily for a total of 1 week
oxycodone 5 mg Tablet
5 mg PO Q6HPRN PRN (Reason: moderate pain) Qty: 28 0RF
furosemide [Lasix] 40 mg tablet
40 mg PO BID Qty: 10 0RF
Rx Instructions:
take with potassium twice daily x3 more days, then once daily for a total of 1 week
sennosides-docusate sodium 8.6-50 mg Tablet
1 tab PO Q12 PRN (Reason: Constipation) Qty: 0 0RF
losartan 25 mg Tablet
25 mg PO DAILY Qty: 30 1RF
Continued
multivitamin Tablet
1 tab PO DAILY
aspirin 81 mg Tablet,Chewable
81 mg DAILY
magnesium 250 mg Tablet
250 mg PO DAILY
ezetimibe 10 mg Tablet
10 mg PO QPM
Repatha SureClick 140 mg/mL Pen Injector
140 mg SC Q14D
fluticasone propionate 50 mcg/actuation [place],Suspension
1 spray INTRANASAL BID PRN (Reason: CONGESTION)
amlodipine 10 mg tablet
10 mg PO QPM
Held
potassium gluconate 595 mg (99 mg) Tablet
595 mg PO DAILY
Hold Instructions: Resume on 03/26/24. resume when potassium chloride complete
Discontinued
metoprolol succinate 25 mg Tablet Extended Release 24 Hr
25 mg PO QPM
Discharge Orders:
Discharge Patient (As Directed); Ordered 03/18/24
Ordered By: Nina Chatman
Care Plan Goals
Care Plan Goals:
Problem: Readiness for enhanced knowledge related to diagnosis and treatment plan
Goal: Understand your diagnosis and treatment plan needs, including medications if applicable.
Instructions: Know your diagnosis, underlying causes and treatment plan options, including medications if applicable. Consult with your health care team to learn about your diagnosis and treatment plan, including medications if applicable.
Discharge Date and Time
Print Language: CZECH
--- NOTE | 2024-03-18 10:22 | W.PN.CARDCBS ---
Today's Communication / Plan
-
afib burden appears to be decreasing
continue po amiodarone 200mg BID for 2 weeks then 200mg daily
po lasix course for DC
consider decreasing coreg and adding michael/arb
eliquis to start today. continue asa
cardiac rehab
OP cardiac follow up arranged
Impression / Plan
-
PCP: Carmen Mendez
Straw Boss: Dr. Wilson
Impression:
s/p bioprosthetic AVR, bioprosthetic MVR, CABG x1, and MAYCOL clip 03/12/2024
Bicuspid aortic valve w/ severe
s/p 29 mm bioprosthetic AVR 03/12/2024
Moderate-severe mitral stenosis
s/p 31 mm bioprosthetic MVR 03/12/2024
CAD
CABG x 1 (reverse SVG from aorta to RPDA) 03/12/2024
Post-op atrial fibrillation w/ RVR
Prolonged QT
Anemia
Hypertension
Hyperlipidemia
h/o statin intolerance, on Repatha
h/o ETOH abuse
former tobacco abuse
HANNAH 02/18/2024: EF 65-70%, calcified mitral valve leaflets w/ restricted motion, mod mitral stenosis, mild MR, heavily calcified bicuspid aortic valve w/ fusion of RCC and LCC, severe with mild to mod AI, dilated ascending aorta at 4.5cm
HANNAH 03/12/2024: (post-op) EF 60%, well seated AVR and MVR, no paravalvular leaks, MAYCOL appears clipped with a small residual lumen, no color doppler seen distal to the clip.
Plan:
-s/p AVR, MVR, CABG x1, MAYCOL clip w/ Dr. Olivares 03/12/2024.
-He had approximately 8 hours of A-fib 03/15. Then approximately 1.5 hours of A-fib late morning 03/16. He had approximately an hour of A-fib 03/17. Had 2 ~2-minute episodes of afib at ~5AM and ~7:30AM. Currently in sinus rhythm. He remains
asymptomatic. Continue p.o. amiodarone 200mg BID for 2 weeks then decrease to 200mg daily
-INR 1.94. ok to start eliquis today. continue asa. Hemoglobin 8.5 on 03/17.
-weight continues to trend down with IV diuresis. patient reports good response. plan for lasix course upon DC. Cr 0.7. K repleted
-with stable R apical PTX by CXR 03/17.
-currently on coreg 50mg BID, norvasc 10mg daily. would consider decreasing coreg dose, and adding michael/arb
-h/o statin intolerance, on PCSK9 inhibitor as OP.
-continue OOB/IS, cardiac rehab
-noted for possible DC today
-d/w CT surgery PA
Progress Note - Straw Boss
Subjective
Date of Service: March 18, 2024
feeling well. for possible DC in AM
Objective
Labs:
03/17/24 06:29
03/18/24 03:10
Labs
Hgb 8.5 g/dL (13.0-18.0) L 03/17/24 06:29
Hct 24.0 % (39.0-52.0) L 03/17/24 06:29
Plt Count 204 10^3/uL (130-400) 03/17/24 06:29
PT 22.4 Sec (11.4-14.6) H 03/18/24 03:10
INR 1.94 03/18/24 03:10
APTT 32.2 Sec (23.4-35.0) 03/12/24 13:07
Sodium 139 mmol/L (135-145) 03/18/24 03:10
Potassium 3.5 mmol/L (3.5-5.1) 03/18/24 03:10
BUN 18 mg/dl (9-20) 03/18/24 03:10
Creatinine 0.7 mg/dL (0.7-1.3) 03/18/24 03:10
Glucose 108 mg/dl (70-99) H 03/18/24 03:10
Vital Signs and I&O:
Vital Signs
Temp Pulse Resp BP Pulse Ox
98.8 F 70 20 104/62 92
03/18/24 07:17 03/18/24 09:00 03/18/24 07:17 03/18/24 07:20 03/18/24 07:20
Vital Signs
Temp Pulse Resp BP Pulse Ox
98.8 F 70 20 104/62 92
03/18/24 07:17 03/18/24 09:00 03/18/24 07:17 03/18/24 07:20 03/18/24 07:20
Intake & Output
03/16/24 03/17/24 03/18/24 03/19/24
07:59 07:59 07:59 07:59
Intake Total 1113.5 / 1140.2 510.1 / 510.1 100 / 100
Output Total 1800 / 1900 3500 / 3500 2925 / 2925 675 / 675
Balance -686.5 / -759.8 -2989.9 / -2989.9 -2825 / -2825 -675 / -675
Physical Exam
Physical Exam
GEN: No distress, awake, alert, oriented x3. sitting in chair
HEENT: supple, anicteric, mmm, eomi
LUNGS: CTA anterolaterally B/L, no wheezes
CV: Reg, S1/S2, no murmur
ABD: soft, BS+, NT/ND
EXT: No cyanosis, clubbing, edema
NEURO: Gross non-focal
SKIN: Warm, pink, dry. No rash. Sternotomy incision c/d/i.
[2024-03-18 10:41] VITALS: BP 130/88
[2024-03-18] MEDS: NORVASC 10 MG PO (10:45)
--- NOTE | 2024-03-18 11:01 | PTCARENOTE ---
Pt went into A-fib at approx 1038 and has remained in A-Fib. Pt had just been in the BR brushing his teeth. He is asymptomatic. HR 100-120. Nina Chatman already aware.
--- NOTE | 2024-03-18 11:05 | CM ---
CM following for DC planning needs.
Met w/ patient at bedside. Pt. has transferred to IVU from CVICU. Pt. reports that he is feeling well. He is hopeful for DC later today.
We reviewed DC plan for home w/ [facility]itional [facility] RN.
Will follow.
[2024-03-18] MEDS: NSS IV (11:06)
[2024-03-18 11:07] VITALS: BP 121/73
--- NOTE | 2024-03-18 11:48 | W.[place]-PDMP ---
[place]-PDMP
-
Checked the [place]- Prescription Drug Monitoring Program website, no red flags identified; safe to proceed with prescription.
[2024-03-18] MEDS: COZAAR 25 MG PO (12:22)
--- NOTE | 2024-03-18 13:01 | W.PN.UPDATE ---
Update Note
Progress Note Update
Temporary epicardial A and V wires cut at the level of the skin by me. pt tolerated well. plans for discharge this afternoon.
--- NOTE | 2024-03-18 14:40 | PTCARENOTE ---
Pt showered prior to D/C, instructions reviewed with Pt, Pt's (on speaker phone) and Pt's brother and sister, present in room. They expressed understanding.
== END 2024-03-18 14:52 | disposition home or self-care (01) | DRG 212 ==
LOC: IVU 05:08
PROVIDERS: Anesthesiology; Clinical Nurse Specialist Acute Care; Physician Assistant Medical; Physician Assistant Surgical; ADMITTING PHYSICIAN Thoracic Surgery (Cardiothoracic Vascular Surgery); CONSULT PHYSICIAN Internal Medicine Critical Care Medicine; FAMILY PHYSICIAN Physician Assistant Medical
PROC: 30233R1 Transfusion of Nonautologous Platelets into Peripheral Vein, Percutaneous Approach (ICD-10-PCS; 2024-03-12)
PROC: 02RF08Z Replacement of Aortic Valve with Zooplastic Tissue, Open Approach (ICD-10-PCS; 2024-03-12)
PROC: 02L70CK Occlusion of Left Atrial Appendage with Extraluminal Device, Open Approach (ICD-10-PCS; 2024-03-12)
PROC: 02RG08Z Replacement of Mitral Valve with Zooplastic Tissue, Open Approach (ICD-10-PCS; 2024-03-12)
PROC: 06BP4ZZ Excision of Right Saphenous Vein, Percutaneous Endoscopic Approach (ICD-10-PCS; 2024-03-12)
PROC: B24BZZ4 Ultrasonography of Heart with Aorta, Transesophageal (ICD-10-PCS; 2024-03-12)
PROC: 021009W Bypass Coronary Artery, One Artery from Aorta with Autologous Venous Tissue, Open Approach (ICD-10-PCS; 2024-03-12)
PROC: 5A1221Z Performance of Cardiac Output, Continuous (ICD-10-PCS; 2024-03-12)
PROC: 30233K1 Transfusion of Nonautologous Frozen Plasma into Peripheral Vein, Percutaneous Approach (ICD-10-PCS; 2024-03-12)
PROC: 30233N1 Transfusion of Nonautologous Red Blood Cells into Peripheral Vein, Percutaneous Approach (ICD-10-PCS; 2024-03-13)
DX: Q23.81 Bicuspid aortic valve (principal); D62 Acute posthemorrhagic anemia; J93.83 Other pneumothorax; D68.8 Other specified coagulation defects; J98.11 Atelectasis; I05.2 Rheumatic mitral stenosis with insufficiency; I25.10 Atherosclerotic heart disease of native coronary artery without angina pectoris; I10 Essential (primary) hypertension; I77.810 Thoracic aortic ectasia; E78.00 Pure hypercholesterolemia, unspecified; F10.21 Alcohol dependence, in remission; R39.15 Urgency of urination; E87.70 Fluid overload, unspecified; E86.1 Hypovolemia; I48.0 Paroxysmal atrial fibrillation; Y83.2 Surgical operation with anastomosis, bypass or graft as the cause of abnormal reaction of the patient, or of later complication, without mention of misadventure at the time of the procedure; Z79.82 Long term (current) use of aspirin; Z79.899 Other long term (current) drug therapy; Z82.49 Family history of ischemic heart disease and other diseases of the circulatory system; Z87.891 Personal history of nicotine dependence
CPT/HCPCS: 88305; 88311; 36415; 71045; 71046; 80048; 80053; 81003; 81015; 82248; 82330; 82565; 82805; 82810; 82947; 82962; 83036; 83735; 84132; 84302; 84520; 85014; 85018; 85025; 85027; 85049; 85347; 85384; 85576; 85610; 85730; 86706; 86803; 86850; 86900; 86901; 86920; 87070; 87340; 87389; 93005; 93312; 93320; 93325; 93880; 94002; J2916; P9016; P9045; P9059; P9073

== ENCOUNTER 2024-04-23 10:58 | Outpatient (RCR) | payer OTHER, SELFPAY | END 2024-04-23 23:59 | disposition home or self-care (01) | LOC: CRHB 10:58 | PROVIDERS: ATTENDING PHYSICIAN Internal Medicine Cardiovascular Disease | DX: Z95.4 Presence of other heart-valve replacement (principal); Z95.1 Presence of aortocoronary bypass graft; I25.10 Atherosclerotic heart disease of native coronary artery without angina pectoris | CPT/HCPCS: 93797; 93798 ==

== ENCOUNTER 2024-05-14 11:49 | Outpatient (RCR) | payer OTHER, SELFPAY | END 2024-05-24 14:39 | disposition home or self-care (01) | LOC: CRHB 11:49 | PROVIDERS: ATTENDING PHYSICIAN Internal Medicine Cardiovascular Disease; FAMILY PHYSICIAN Physician Assistant Medical | DX: I25.10 Atherosclerotic heart disease of native coronary artery without angina pectoris (principal); Z95.4 Presence of other heart-valve replacement; Z95.1 Presence of aortocoronary bypass graft | CPT/HCPCS: 93797; 93798 ==

== ENCOUNTER → 2024-05-24 12:52 | Outpatient (REF) | payer OTHER, SELFPAY | LOC: RAD 12:52 | PROVIDERS: ATTENDING PHYSICIAN Physician Assistant Medical | DX: R07.81 Pleurodynia (principal) | CPT/HCPCS: 71101 ==

== ENCOUNTER → 2024-08-12 11:59 | Outpatient (REF) | payer OTHER, SELFPAY | LOC: RAD 11:59 | PROVIDERS: ATTENDING PHYSICIAN Internal Medicine Interventional Cardiology | DX: Z95.2 Presence of prosthetic heart valve (principal); Z95.1 Presence of aortocoronary bypass graft; I48.0 Paroxysmal atrial fibrillation | CPT/HCPCS: 71046 ==

== ENCOUNTER → 2024-09-08 13:01 | Outpatient (REF) | payer OTHER, SELFPAY | LOC: RAD 13:01 | PROVIDERS: ATTENDING PHYSICIAN Physician Assistant Medical | DX: M25.551 Pain in right hip (principal); M25.552 Pain in left hip; M54.16 Radiculopathy, lumbar region | CPT/HCPCS: 72110; 73522 ==

== ENCOUNTER → 2024-09-13 10:48 | Outpatient (REF) | payer OTHER, SELFPAY | LOC: RCS 10:48 | PROVIDERS: ATTENDING PHYSICIAN Internal Medicine Interventional Cardiology; FAMILY PHYSICIAN Physician Assistant Medical | DX: Z95.2 Presence of prosthetic heart valve (principal); Z95.1 Presence of aortocoronary bypass graft; I48.0 Paroxysmal atrial fibrillation | CPT/HCPCS: 93306 ==

== ENCOUNTER → 2024-10-23 08:49 | Outpatient (REF) | payer MEDICARE, SELFPAY | LOC: PAVMRI 08:49 | PROVIDERS: ATTENDING PHYSICIAN Specialist; FAMILY PHYSICIAN Physician Assistant Medical | DX: M54.16 Radiculopathy, lumbar region (principal) | CPT/HCPCS: 72148 ==

== ENCOUNTER → 2024-10-25 14:13 | Outpatient (REF) | payer MEDICARE, SELFPAY | LOC: HWRAD 14:13 | PROVIDERS: ATTENDING PHYSICIAN Physician Assistant Medical | DX: R35.0 Frequency of micturition (principal); R35.1 Nocturia; R39.198 Other difficulties with micturition | CPT/HCPCS: 76770 ==

== ENCOUNTER 2024-11-01 09:12 | Inpatient (IN) | payer MEDICARE, SELFPAY ==
--- NOTE | 2024-10-14 13:57 | CM ---
Addendum entered by Katie Floers RN 11/02/24 09:44:
Cm met with patient in room. Patient confirmed PT appointment. IMM given and explained. in room for transportation. No further needs.
PLAN: home with outpatient PT.
Original Note:
CM reviewed medical records. CM spoke with patient. Patient confirmed demographics. Patient lives independently with . Patient does not have a history of VN or SNF. Patient confirmed he has his hip kit, walker, shower chair, venous compression
device,. Patient has an appointment at [facility] on [facility] on 11/03. Patient is active with his PCP. Patient will use [facility] for medication services.
CM discussed hydration and bowel regiment.
PLAN: home with outpatient PT.
[2024-10-22 11:07] LABS: Hematocrit 44.3 % (39.0-52.0); Hemoglobin 15.1 g/dL (13.0-18.0); Mean Corp Hgb Conc. 34.1 g/dL (33.0-37.0); Mean Corpuscular Hgb 31.5 pg (27.0-31.0); Mean Corpuscular Volume 92.3 fL (80.0-94.0); Mean Platelet Volume 10.2 fL (7.4-10.4); Platelet Count 194 10^3/uL (130-400); Red Cell Dist. Width 13.5 % (11.5-14.5); White Blood Cell Count 5.4 10^3/uL (4.8-10.8)
[2024-10-22 11:26] LABS: ALT (SGPT) 46 U/L (0-50); AST (SGOT) 24 U/L (17-59); Albumin 4.6 g/dl (3.5-5.0); Alkaline Phosphatase 72 U/L (38-126); Blood Urea Nitrogen 19 mg/dl (9-20); Calcium 9.1 mg/dl (8.4-10.2); Carbon Dioxide 27 mmol/L (22-30); Chloride 109 mmol/L (98-107); Glucose 109 mg/dl (70-99); Potassium 4.5 mmol/L (3.5-5.1); Sodium 143 mmol/L (135-145); Total Bilirubin 0.9 mg/dl (0.2-1.3); Total Protein 6.9 g/dl (6.3-8.2); eGFR > 60.00
[2024-10-22 12:04] LABS: Glycohemoglobin (HgbA1c) 5.5 % (4.0-5.6)
[2024-10-22 12:57] VITALS: BMI 24.6
[2024-10-22 14:08] VITALS: BMI 24.6
[2024-10-22 16:37] VITALS: BMI 24.6
[2024-11-01] VITALS (14 sets, daily range): BP systolic 100–134; BP diastolic 61–85; PULSE 69
--- NOTE | 2024-11-01 08:42 | W.PN.UPDATE ---
Update Note
Progress Note Update
L hip OA s/p L SWETHA w/ Dr Mcfarland 11/01/24
- EARLY DISCHARGE
DVT prophylaxis - ASA, b/l venous foot pumps
HTN - + parameters - monitor BP
CAD, status post CABG x1 02/2024
Brief post-operative atrial fibrillation
Left bundle branch block
First-degree AV block
Congenital long QT syndrome
- Monitor on tele. Of note, no a fib on recent outpatient monitor
- Continue Amiodarone and Carvedilol
- May need to consider OAC should a fib present; tolerated Eliquis previously
- Minimize Zofran d/t QT syndrome
Post-operative right apical pneumothorax 02/2024; resolved on 04/2024 CXR - monitor O2
- IS
Lumbar DDD with radiculopathy - add Gabapentin HS
Recently diagnosed BPH with urinary retention - continue Flomax
- Additional Flomax dose ordered if needed
- Monitor voids/PVRs. Straight cath prn
Hypercholesterolemia, statin intolerant
Severe and moderate-severe MS, status post bioprosthetic AVR, bioprosthetic MVR, and left atrial appendage ligation clip 02/2024
Dilated ascending aorta, 4.5 cm
Venous varicosities
Colon polyps
Vertigo
Squamous cell carcinoma status post excision
Remote history of tobacco abuse
History of alcohol abuse, in remission
[2024-11-01] MEDS: CELEBREX 200 MG PO (10:14)
[2024-11-01] MEDS: NORMOSOL-R/PLASMALYTE-A 1000 IV ×2 (10:15→15:37)
[2024-11-01] MEDS: TYLENOL 650 MG PO ×4 (10:15→23:02)
[2024-11-01] MEDS: ROXICODONE 5 MG PO ×2 (14:13→17:38)
--- NOTE | 2024-11-01 15:45 | PTCARENOTE ---
report received from pacu. [email or web address]. karishma to l hip. scant bloody draining. nv checks obtained. normosol @ 100cc/hr. vss. nsr. call salazar in reach. plan of care updated. will monitor.
[2024-11-01] MEDS: ASPIRIN 325 MG PO (17:32)
[2024-11-01] MEDS: ZETIA 10 MG PO (17:32)
[2024-11-01] MEDS: ANCEF 5 IV (17:32)
[2024-11-01] MEDS: COLACE 100 MG PO (19:37)
[2024-11-01] MEDS: SENOKOT 17.2 MG PO (19:37)
[2024-11-01] MEDS: DECADRON 4 MG PO (19:39)
[2024-11-01] MEDS: COREG 25 MG PO (19:42)
[2024-11-01] MEDS: BACTROBAN 2% OINTMENT 1 APPLIC NASAL (19:43)
[2024-11-01] MEDS: FLOMAX 0.4 MG PO (19:48)
[2024-11-01] MEDS: PEPCID 20 MG PO (22:36)
[2024-11-01] MEDS: ROXICODONE 10 MG PO (22:36)
[2024-11-01] MEDS: MYLICON 80 MG PO (23:03)
[2024-11-02] MEDS: ANCEF 5 IV (03:08)
[2024-11-02] MEDS: TYLENOL 650 MG PO ×2 (03:08→08:04)
[2024-11-02 03:20] VITALS: BP 123/75
[2024-11-02] MEDS: ROXICODONE 10 MG PO ×2 (06:01→10:53)
[2024-11-02 07:22] VITALS: BP 139/83
[2024-11-02] MEDS: CELEBREX 200 MG PO (08:02)
[2024-11-02] MEDS: SENOKOT 17.2 MG PO (08:03)
[2024-11-02] MEDS: COLACE 100 MG PO (08:03)
[2024-11-02] MEDS: ASPIRIN 325 MG PO (08:03)
[2024-11-02] MEDS: PACERONE 200 MG PO (08:04)
[2024-11-02] MEDS: COREG 25 MG PO (08:04)
[2024-11-02] MEDS: DECADRON 4 MG PO (08:05)
[2024-11-02] MEDS: BACTROBAN 2% OINTMENT NASAL (08:06)
[2024-11-02 08:57] VITALS: BP 127/82; BP 140/86; PULSE 77; O2SAT 95
--- NOTE | 2024-11-02 09:43 | W.PN.ORTHO ---
Today's Communication / Plan
-
D/c today since clinically stable.
Assessment
.
Distal Motor Intact: Yes
Dressing:
Scant areas of old bleeding along incision line.
Assessment:
L hip OA s/p L SWETHA w/ Dr Mcfarland 11/01/24
- EARLY DISCHARGE
DVT prophylaxis - ASA, b/l venous foot pumps
HTN - + parameters - BPs overall stable
CAD, status post CABG x1 02/2024
Brief post-operative atrial fibrillation
Left bundle branch block
First-degree AV block
Congenital long QT syndrome
- Monitor on tele. Of note, no a fib on recent outpatient monitor -> maintaining NSR
- Continue Amiodarone and Carvedilol
- May need to consider OAC should a fib present; tolerated Eliquis previously -> no need for OAC; will continue ASA 325 mg x4 weeks
- Minimize Zofran d/t QT syndrome
Post-operative right apical pneumothorax 02/2024; resolved on 04/2024 CXR - O2 stable on RA
- IS
Lumbar DDD with radiculopathy - added Gabapentin HS
Recently diagnosed BPH with urinary retention - continue Flomax
- Additional Flomax dose ordered if needed
- Voiding by POD 1. No straining reported
Hypercholesterolemia, statin intolerant
Severe and moderate-severe MS, status post bioprosthetic AVR, bioprosthetic MVR, and left atrial appendage ligation clip 02/2024
Dilated ascending aorta, 4.5 cm
Venous varicosities
Colon polyps
Vertigo
Squamous cell carcinoma status post excision
Remote history of tobacco abuse
History of alcohol abuse, in remission
Plan
.
Surgery / Date: Juliet almanzar/ Dr Mcfarland 11/01/24
DVT Prophylaxis: Aspirin
Activity:
Out of bed.
PT/OT
Discharge Plan: Home w/ Outpatient PT
Subjective
.
.:
Patient resting comfortably in his chair.
Did well PT and OT.
Denies any new significant complaints.
L hip pain well controlled w/ current pain meds.
Eager for d/c today.
Vital Signs and Labs
.
Vital Signs and Labs:
Lab Results
10/22/24 10:05
10/22/24 10:06
Temp Pulse Resp BP Pulse Ox
98.4 F 82 17 139/83 96
11/02/24 07:22 11/02/24 07:22 11/02/24 07:22 11/02/24 07:22 11/02/24 07:22
Non-invasive Hgb result: 13.8
Physical Exam
-
HEENT: No pallor, cyanosis, or jaundice. Throat clear.
NECK: Supple. No JVD.
RESPIRATORY: Lungs clear to auscultation.
CVS: S1, S2 normal. RRR.�
ABDOMEN: Soft, non-tender. No distension.
EXTREMITIES: Strength equal, no calf pain with palpation/dorsiflexion. Calves soft.
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 No focal deficits. manager desktop grossly intact
--- NOTE | 2024-11-02 09:52 | W.DS.TRANS ---
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
-
Discharge Instructions:
Sleep Apnea Risk Intermediate
Discharge Diagnosis/Procedures L hip OA s/p L SWETHA w/ Dr Mcfarland 11/01/24
Diet Regular
Additional Diets Adequate hydration, minimize opioids, and wear
TEDs stockings to prevent low blood pressure/
dizziness.
Activity As tolerated,With Walker
Driving Restrictions Not until seen by your Dr
Bathing Restrictions OK to Shower
Other Services PT
Wound Care Dressing to be removed 1 week post-surgery.
Marium to be removed at 2 week follow-up with
surgeon's office.
Instructions:
Stand-Alone Forms: Total Hip/Knee Replacement D/C
Changes to Home Medications: Yes
Discharge Medications:
DC Medications w/original date entered in [facility]
evolocumab 140 mg/mL subcutaneous pen injector (GeneroathPublictivityJossHomeSphere) 140 mg SC Q14D High Cholesterol 02/18/24
ezetimibe 10 mg tablet 10 mg PO QPM High Cholesterol 02/18/24
fluticasone propionate 50 mcg/actuation nasal spray,suspension 1 spray intranasal DAILY PRN nasal congestion 03/09/24
carvedilol 25 mg tablet 25 mg PO BID #60 tabs 03/18/24
psyllium 1 tsp PO BID Constipation 10/21/24
mupirocin 2 % topical ointment 1 applic intranasal BID #1 tube 10/22/24
acetaminophen 500 mg tablet 1,000 mg (2 x 500 mg) PO Q6H pain #1 tab 11/02/24
amiodarone 200 mg tablet 200 mg PO DAILY AFIB #1 tab 11/02/24
amlodipine 10 mg tablet 10 mg PO QPM Blood Pressure #1 tab 11/02/24
aspirin 325 mg tablet 325 mg PO DAILY #30 tabs 11/02/24
celecoxib 200 mg capsule 200 mg PO DAILY #14 caps 11/02/24
dexamethasone 4 mg tablet 4 mg PO BID Anti-inflammatory #5 tabs 11/02/24
docusate sodium 100 mg capsule 100 mg PO BID #30 caps 11/02/24
famotidine 20 mg tablet 20 mg PO HS #30 tabs 11/02/24
losartan 25 mg tablet 25 mg PO DAILY #30 tabs 11/02/24
oxycodone 5 mg tablet 5 - 10 mg (1 - 2 x 5 mg) PO Q6H PRN moderate-severe pain #30 tabs 11/02/24
prochlorperazine maleate 5 mg tablet 5 mg PO Q8H PRN nausea and vomiting #30 tabs 11/02/24
sennosides 8.6 mg tablet (Erin-jadiel) 17.2 mg (2 x 8.6 mg) PO BID #30 tabs 11/02/24
simethicone 80 mg chewable tablet 80 mg PO QIDPRN PRN gas pain #1 tab 11/02/24
tamsulosin 0.4 mg capsule 0.4 mg PO DAILY #1 cap 11/02/24
Home Medication Changes
acetaminophen 500 mg tablet 1,000 mg (2 x 500 mg) PO Q6H pain #1 tab 11/02/24
aspirin 325 mg tablet 325 mg PO DAILY #30 tabs 11/02/24
celecoxib 200 mg capsule 200 mg PO DAILY #14 caps 11/02/24
dexamethasone 4 mg tablet 4 mg PO BID Anti-inflammatory #5 tabs 11/02/24
docusate sodium 100 mg capsule 100 mg PO BID #30 caps 11/02/24
famotidine 20 mg tablet 20 mg PO HS #30 tabs 11/02/24
oxycodone 5 mg tablet 5 - 10 mg (1 - 2 x 5 mg) PO Q6H PRN moderate-severe pain #30 tabs 11/02/24
prochlorperazine maleate 5 mg tablet 5 mg PO Q8H PRN nausea and vomiting #30 tabs 11/02/24
sennosides 8.6 mg tablet (Erin-jadiel) 17.2 mg (2 x 8.6 mg) PO BID #30 tabs 11/02/24
simethicone 80 mg chewable tablet 80 mg PO QIDPRN PRN gas pain #1 tab 11/02/24
Pending Results: No
[2024-11-02] MEDS: TYLENOL PO ×2 (10:48→10:50)
[2024-11-02] MEDS: MYLICON 80 MG PO (10:49)
[2024-11-02 11:12] VITALS: BP 128/76
== END 2024-11-02 11:31 | disposition home or self-care (01) | DRG 470 ==
LOC: 2 SOUTH 09:12
PROVIDERS: ADMITTING PHYSICIAN Specialist; FAMILY PHYSICIAN Physician Assistant Medical; REFERRING PHYSICIAN Internal Medicine Interventional Cardiology
PROC: 0SRB04A Replacement of Left Hip Joint with Ceramic on Polyethylene Synthetic Substitute, Uncemented, Open Approach (ICD-10-PCS; 2024-11-01)
DX: M16.12 Unilateral primary osteoarthritis, left hip (principal); I10 Essential (primary) hypertension; I48.0 Paroxysmal atrial fibrillation; I45.81 Long QT syndrome; E78.00 Pure hypercholesterolemia, unspecified; Z87.891 Personal history of nicotine dependence
CPT/HCPCS: 36415; 73502; 80053; 83036; 85027; 87070; 97116; 97162; 97166; 97530; 97535; C1713; C1776

== ENCOUNTER 2025-02-21 11:18 | Inpatient (IN) | payer MEDICARE, SELFPAY ==
--- NOTE | 2025-01-12 15:35 | CM ---
Demographics: confirmed
Living situation:lives with
Support Person Post Operatively:
History of
VN: none
SNF: none
Outpatient: [facility]
Has patient purchased required equipment: yes
PCP: Active
Pharmacy: [facility]
Post Operative Discharge Plan: Plan for discharge to home with and outpatient PT.
[2025-02-02 11:32] LABS: ALT (SGPT) 26 U/L (0-50); AST (SGOT) 23 U/L (17-59); Albumin 4.8 g/dl (3.5-5.0); Alkaline Phosphatase 72 U/L (38-126); Blood Urea Nitrogen 24 mg/dl (9-20); Calcium 10.3 mg/dl (8.4-10.2); Carbon Dioxide 29 mmol/L (22-30); Chloride 105 mmol/L (98-107); Glucose 103 mg/dl (70-99); Potassium 4.6 mmol/L (3.5-5.1); Sodium 141 mmol/L (135-145); Total Protein 7.3 g/dl (6.3-8.2); eGFR > 60.00
[2025-02-02 11:47] LABS: Hematocrit 45.7 % (39.0-52.0); Hemoglobin 15.4 g/dL (13.0-18.0); Mean Corp Hgb Conc. 33.7 g/dL (33.0-37.0); Mean Corpuscular Volume 93.5 fL (80.0-94.0); Platelet Count 230 10^3/uL (130-400); Red Cell Dist. Width 12.8 % (11.5-14.5)
[2025-02-02 13:38] LABS: Glycohemoglobin (HgbA1c) 5.4 % (4.0-5.6)
[2025-02-02 14:05] VITALS: BMI 23.6
[2025-02-11 13:40] VITALS: BMI 23.6
[2025-02-21] VITALS (9 sets, daily range): BP systolic 110–154; BP diastolic 70–90
[2025-02-21] MEDS: NORMOSOL-R/PLASMALYTE-A 1000 IV ×2 (11:30→16:57)
[2025-02-21] MEDS: CELEBREX 200 MG PO (11:47)
[2025-02-21] MEDS: TYLENOL 650 MG PO ×3 (11:47→19:56)
--- NOTE | 2025-02-21 12:24 | W.PN.ORTHO ---
Today's Communication / Plan
-
d/c am if stable
Assessment
.
Assessment:
Left bundle branch block.
Long QT syndrome.
Ascending aortic dilatation, 4.5 cm
Paroxysmal atrial fibrillation, off oral anticoagulation.
CABG x1 with AVR, MVR-bioprosthetic, MAYCOL clip, 02/2024.
-No QT prolonging agents including Odansetron
-monitor on tele
.
Plan
.
Surgery / Date: R SWETHA Dr Mcfarland 02/21/25
DVT Prophylaxis: Aspirin
Activity:
Out of bed.
PT/OT
Discharge Plan: Home w/ Outpatient PT
Vital Signs and Labs
.
Vital Signs and Labs:
Lab Results
02/02/25 10:13
02/02/25 10:13
Temp Pulse Resp BP Pulse Ox
98.7 F 70 16 154/90 96
02/21/25 11:15 02/21/25 11:15 02/21/25 11:15 02/21/25 11:15 02/21/25 11:15
--- NOTE | 2025-02-21 12:39 | W.DS.TRANS ---
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
-
Discharge Instructions:
Sleep Apnea Risk Intermediate
Discharge Diagnosis/Procedures R SWETHA Dr Mcfarland 02/21/25
Diet Regular,As tolerated
Driving Restrictions No driving
Bathing Restrictions OK to Shower
Other Services PT
Instructions:
Stand-Alone Forms: Total Hip/Knee Replacement D/C
Changes to Home Medications: Yes
Discharge Medications:
DC Medications w/original date entered in [employer]
evolocumab 140 mg/mL subcutaneous pen injector (Repatha SureClick) 140 mg SC Q2W High Cholesterol 02/18/24
ezetimibe 10 mg tablet 10 mg PO QPM High Cholesterol 02/18/24
fluticasone propionate 50 mcg/actuation nasal spray,suspension 2 spray intranasal DAILY PRN nasal congestion 03/09/24
carvedilol 25 mg tablet 25 mg PO BID #60 tabs 03/18/24
docusate sodium 100 mg capsule 100 mg PO BID #30 caps 11/02/24
sennosides 8.6 mg tablet (Erin-jadiel) 17.2 mg (2 x 8.6 mg) PO BID #30 tabs 11/02/24
tamsulosin 0.4 mg capsule 0.4 mg PO DAILY #1 cap 11/02/24
mupirocin 2 % topical ointment 1 applic topical BID infection prevention #1 tube 02/01/25
celecoxib 100 mg capsule 100 mg PO BID Anti-inflammatory #14 caps 02/02/25
dexamethasone 4 mg tablet 4 mg PO BID inflammation #6 tabs 02/02/25
famotidine 20 mg tablet 20 mg PO HS GI prophylaxis #30 tabs 02/02/25
gabapentin 300 mg capsule 300 mg PO HS sleep/pain #10 caps 02/02/25
oxycodone 5 mg tablet 5 mg PO Q6H PRN 1 tab moderate pain, 2 tabs severe pain #30 tabs 02/02/25
acetaminophen 500 mg tablet 1,000 mg (2 x 500 mg) PO QID pain #1 tab 02/21/25
amlodipine 10 mg tablet 10 mg PO QPM Blood Pressure #1 tab 02/21/25
aspirin 325 mg tablet 325 mg PO DAILY blood clot prevention #1 tab 02/21/25
losartan 25 mg tablet 25 mg PO DAILY #30 tabs 02/21/25
magnesium hydroxide 400 mg/5 mL oral suspension (Milk of Magnesia) 30 ml PO HS PRN constipation #1 mL 02/21/25
Home Medication Changes
mupirocin 2 % topical ointment 1 applic topical BID infection prevention #1 tube 02/01/25
celecoxib 100 mg capsule 100 mg PO BID Anti-inflammatory #14 caps 02/02/25
dexamethasone 4 mg tablet 4 mg PO BID inflammation #6 tabs 02/02/25
famotidine 20 mg tablet 20 mg PO HS GI prophylaxis #30 tabs 02/02/25
gabapentin 300 mg capsule 300 mg PO HS sleep/pain #10 caps 02/02/25
oxycodone 5 mg tablet 5 mg PO Q6H PRN 1 tab moderate pain, 2 tabs severe pain #30 tabs 02/02/25
acetaminophen 500 mg tablet 1,000 mg (2 x 500 mg) PO QID pain #1 tab 02/21/25
amlodipine 10 mg tablet 10 mg PO QPM Blood Pressure #1 tab 02/21/25
aspirin 325 mg tablet 325 mg PO DAILY blood clot prevention #1 tab 02/21/25
losartan 25 mg tablet 25 mg PO DAILY #30 tabs 02/21/25
magnesium hydroxide 400 mg/5 mL oral suspension (Milk of Magnesia) 30 ml PO HS PRN constipation #1 mL 02/21/25
Pending Results: No
[2025-02-21] MEDS: ROXICODONE 5 MG PO ×2 (16:05→18:39)
--- NOTE | 2025-02-21 17:38 | PTCARENOTE ---
Pt arrived to [facility] s/p R SWETHA. Right hip dressing with scant sanguineous drainage assessed. NSR on monitor. Thigh high teds and foot pumps on pt. Pt DTV. Bed locked and in lowest position. Care ongoing.
[2025-02-21] MEDS: ZETIA 10 MG PO (18:12)
[2025-02-21] MEDS: ASPIRIN 325 MG PO (18:12)
[2025-02-21] MEDS: FLOMAX 0.4 MG PO (18:33)
[2025-02-21] MEDS: NORVASC 5 MG PO (18:33)
--- NOTE | 2025-02-21 19:24 | PTCARENOTE ---
Pt BP 137/72 HR 82. Amlodipine and flomax both ordered. No parameters to hold on either. Surgeon texted and advised to give both. Joellen MUKHERJEE called in to check on pt. Advised to recheck BP at 20:30 and give midodrine if SBP < 130. Care
ongoing.
[2025-02-21] MEDS: COLACE 100 MG PO (19:56)
[2025-02-21] MEDS: SENOKOT 17.2 MG PO (19:56)
[2025-02-21] MEDS: TORADOL 15 MG IV (19:57)
[2025-02-21] MEDS: COREG 25 MG PO (19:58)
[2025-02-21] MEDS: DECADRON 4 MG IV (20:11)
[2025-02-21] MEDS: BACTROBAN 2% OINTMENT 1 APPLIC NASAL (22:20)
[2025-02-21] MEDS: PEPCID 20 MG PO (22:42)
[2025-02-21] MEDS: ANCEF 5 IV (22:42)
[2025-02-21] MEDS: NEURONTIN 300 MG PO (22:43)
[2025-02-21] MEDS: ROXICODONE 10 MG PO (22:57)
[2025-02-22] MEDS: TYLENOL PO (00:11)
[2025-02-22] MEDS: TYLENOL 650 MG PO ×2 (03:02→08:39)
[2025-02-22 03:25] VITALS: BP 121/70
[2025-02-22] MEDS: ROXICODONE 5 MG PO (04:25)
[2025-02-22] MEDS: ANCEF 5 IV (05:06)
[2025-02-22 07:35] VITALS: BP 137/96
[2025-02-22 08:32] VITALS: BP 124/79; BP 127/82; BP 131/82; PULSE 75; PULSE 89; O2SAT 97
[2025-02-22] MEDS: ROXICODONE 10 MG PO (08:37)
[2025-02-22] MEDS: ASPIRIN 325 MG PO (08:38)
[2025-02-22] MEDS: FLOMAX 0.4 MG PO (08:38)
[2025-02-22] MEDS: DECADRON 4 MG IV (08:40)
[2025-02-22] MEDS: COLACE 100 MG PO (08:40)
[2025-02-22] MEDS: TORADOL 15 MG IV (08:40)
[2025-02-22] MEDS: SENOKOT 17.2 MG PO (08:40)
[2025-02-22] MEDS: BACTROBAN 2% OINTMENT 1 APPLIC NASAL (08:43)
[2025-02-22] MEDS: COREG 25 MG PO (08:52)
[2025-02-22 09:14] VITALS: BP 138/84; PULSE 90; O2SAT 97
--- NOTE | 2025-02-22 09:24 | CM ---
CM met with patient in room. Patient confirmed outpatient PT appointment. IMM given.
PLAN: Home with outpatient PT.
[2025-02-22 11:35] VITALS: BP 110/68
--- NOTE | 2025-02-22 12:43 | W.PN.ORTHO ---
Today's Communication / Plan
-
d/c
Assessment
.
Distal Motor Intact: Yes
Dressing:
Clean, dry and intact.
Assessment:
Left bundle branch block.
Long QT syndrome.
Ascending aortic dilatation, 4.5 cm
Paroxysmal atrial fibrillation, off oral anticoagulation.
CABG x1 with AVR, MVR-bioprosthetic, MAYCOL clip, 02/2024.
-No QT prolonging agents including Odansetron
-stable on tele
.
Plan
.
Surgery / Date: R SWETHA Mcfarland 02/21/25
DVT Prophylaxis: Aspirin
Activity:
Out of bed.
PT/OT
Discharge Plan: Home w/ Outpatient PT
Subjective
.
.:
Patient resting comfortably.
Vital Signs and Labs
.
Vital Signs and Labs:
Lab Results
02/02/25 10:13
02/02/25 10:13
Temp Pulse Resp BP Pulse Ox
97.4 F 77 18 110/68 96
02/22/25 11:35 02/22/25 11:35 02/22/25 11:35 02/22/25 11:35 02/22/25 11:35
Non-invasive Hgb result: 13.8
Physical Exam
-
HEENT: No pallor, cyanosis, or jaundice. Throat clear.
NECK: Supple. No JVD.
RESPIRATORY: Lungs clear to auscultation.
CVS: S1, S2 normal. RRR.� No murmur, rub or gallop.
ABDOMEN: Soft, non-tender. No distension. BS+/normal.
EXTREMITIES: strength equal, no calf pain with palpation
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 No focal deficits. 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
== END 2025-02-22 12:21 | disposition home or self-care (01) | DRG 470 ==
LOC: 2 SOUTH 11:18
PROVIDERS: ADMITTING PHYSICIAN Specialist; FAMILY PHYSICIAN Physician Assistant Medical
PROC: 0SR90JA Replacement of Right Hip Joint with Synthetic Substitute, Uncemented, Open Approach (ICD-10-PCS; 2025-02-21)
DX: M16.11 Unilateral primary osteoarthritis, right hip (principal); I44.7 Left bundle-branch block, unspecified; I45.81 Long QT syndrome; I48.0 Paroxysmal atrial fibrillation; Z95.1 Presence of aortocoronary bypass graft; E78.5 Hyperlipidemia, unspecified; I10 Essential (primary) hypertension; F10.11 Alcohol abuse, in remission; N40.1 Benign prostatic hyperplasia with lower urinary tract symptoms; R33.8 Other retention of urine; Z87.891 Personal history of nicotine dependence; M81.0 Age-related osteoporosis without current pathological fracture; Z88.8 Allergy status to other drugs, medicaments and biological substances; Z95.3 Presence of xenogenic heart valve
CPT/HCPCS: 36415; 73502; 80053; 83036; 85027; 87070; 97110; 97116; 97162; 97166; 97535